=== PATIENT | female | born 1995 | race Caucasian/White ===

== ENCOUNTER 2016-11-23 09:19 | Emergency (ER) | payer MEDICAID, SELFPAY ==
[~2016-11-23 09:19] MED LIST: /ACETCOD2T PO; /ONDA4TA PO; ACET50TA PO; ANUS2.5C2 AD; DOCU10ELUD PO; IBUP80TA PO; MOM30SS PO; PRENTAB9 PO; VALT1TAB PO; [UNRECOGNIZED DRUG - OTHER] OR; azythromycin OR
[2016-11-23] MEDS ORDERED: PANTOPRAZOLE 40MG INJ (PROTONIX) (C9113) As Ordered ONE (10:07)
[2016-11-23] MEDS ORDERED: ONDANSETRON 4MG/2ML VIAL (J2405) As Ordered ONE (10:07)
[2016-11-23 10:19] LABS: BASO % 0.3 % (0.0-1.0); EOS # 0.1 K/mm3 (0.0-0.50); EOS % 0.6 % (0.0-3.0); LARGE UNSTAINED CELL # 0.4 K/mm3 (0.0-0.4); LARGE UNSTAINED CELL % 3.6 % (0.0-4.0); LYMPH # 1.2 K/mm3 (1.5-6.5); LYMPH % 10.5 % (24.0-44.0); MEAN CORPUSCULAR HEMOGLOBIN 29.7 pg (27.0-33.0); MEAN CORPUSCULAR HGB CONC 32.6 g/dl (32.0-36.5); MEAN CORPUSCULAR VOLUME 91.1 fl (80.0-96.0); MONO # 0.7 K/mm3 (0.0-0.8); MONO % 6.1 % (0.0-5.0); NEUTROPHILS % 78.8 % (36.0-66.0); PLATELET COUNT, AUTOMATED 203 k/mm3 (150-450); WHITE BLOOD COUNT 11.4 K/mm3 (4.0-10.0)
[2016-11-23 10:39] LABS: ANION GAP 9 MEQ/L (8-16); BLOOD UREA NITROGEN 5 MG/DL (7-18); CALCIUM LEVEL 8.7 MG/DL (8.5-10.1); CARBON DIOXIDE LEVEL 25 MEQ/L (21-32); CHLORIDE LEVEL 107 MEQ/L (98-107); GLOMERULAR FILTRATION RATE > 60.0 (>60); GLUCOSE, FASTING 83 MG/DL (70-105); POTASSIUM SERUM 3.7 MEQ/L (3.5-5.1); SODIUM LEVEL 141 MEQ/L (136-145)
--- NOTE | 2016-11-23 12:50 | EDDOCDS ---
Physician Documentation [facility] Name: lEsy Palacios Age: 20 yrs Sex: Female : 1995 Arrival Date: 11/23/2016 Time: 09:19 Bed I5 / M5 Private MD: NO PRIMARY PHYSICIAN, . Disposition: 11/23/16 12:39 Discharged to Home/Self Care. Impression: Conjunctivitis - Left, Nausea and vomiting, Diarrhea, unspecified. - Condition is Stable. - Discharge Instructions: Food Choices to Help Relieve Diarrhea, Adult, Conjunctivitis (Viral and Bacterial), Diarrhea. - Prescriptions for Erythromycin 5 mg/gram (0.5 %) Ophthalmic Ointment - apply 1 centimeter by OPHTHALMIC route 2-3 times daily for 7 days; 1 tube. - Work Release Form - 3 day, Medication Reconciliation, Local Pharmacy Hours form. - Follow up: Clifford Alejandre MD; When: As previously arranged; Reason: Recheck today's complaints, Continuance of care. Follow up: Emergency Department; When: As needed; Reason: Worsening of conditions. - Problem is new. - Symptoms have improved. Historical: - Allergies: no known allergies; - Home Meds: 1. none - PMHx: Herpes; IBS; ''Kidney cysts''; - PSHx: ectopic; - Social history: Smoking status: Patient/guardian denies using No barriers to communication noted, The patient speaks fluent Setswana. - Family history: Not pertinent. - : The pt / caregiver states he / she is not on anticoagulants. Home medication list is obtained from the patient. - Exposure Risk Screening:: None identified. 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 4 in. (162.56 cm) (R); 10:52 BP 96 / 54; Pulse 80; Pulse Ox 98% ; kr3 11:30 BP 109 / 70; Pulse 82; Resp 18; Temp 97.4; Pulse Ox 100% ; Pain 0/10; jam1 09:21 Body Mass Index 22.31 (58.97 kg, 162.56 cm) dd6 Visual Acuity: 09:34 Left Eye Visual acuity 20/40, ; Right Eye Visual acuity 20/30, ; Both Eyes Visual kcs acuity 20/40; Without Lenses; MDM: 09:41 Heart Tones ordered. dk1 09:41 Fluid Challenge ordered. dk1 09:45 UA Ordered. EDMS 09:45 Urine Culture Ordered. EDMS 10:05 IV Saline Lock ordered. dk1 10:05 NS 0.9% 2000 ml IV at bolus once ordered. dk1 10:05 pantoprazole 40 mg IV at bolus once ordered. dk1 10:05 Ondansetron 4 mg IVP once ordered. dk1 10:06 CBC with Diff Ordered. EDMS 10:06 BMP Ordered. EDMS 10:40 CBC with Diff Reviewed. dk1 11:23 [facility] Payment Agreement was scanned into [employer] and attached to record. 5 11:23 Financial registration complete. jp5 11:26 UA Reviewed. dk1 11:26 BMP Reviewed. dk1 Administered Medications: 10:13 Drug: pantoprazole 40 mg [pantoprazole 40 mg intravenous solution] Route: IV; Rate: jmk bolus; Site: left antecubital; 10:13 Drug: Ondansetron 4 mg Route: IVP; Site: left antecubital; k 11:43 Follow up: Response: Nausea is decreased k 10:14 Drug: NS 0.9% 2000 ml Route: IV; Rate: bolus; Site: left antecubital; k 10:52 Follow up: BP 96 / 54; Pulse 80 bpm; Pulse Ox 98% ; IV Intake: 1000ml kr3 11:46 Follow up: IV Status: Completed infusion; IV Intake: 1000ml kr3 Signatures: Dispatcher [employer] EDDarien HeathRN Hetal Villarreal RN Carey Hess RN RN kr3 Froy Moore PA-C PA-C dk1 George Rincon jp5 The chart was reviewed and I authenticate all verbal orders and agree with the evaluation and treatment provided.Attachments: 11:23 [facility] Payment Agreement jp5 MTDD
--- NOTE | 2016-11-23 12:50 | EDDOCDS ---
Nurse's Notes [facility] Name: Elsy Palacios Age: 20 yrs Sex: Female : 1995 Arrival Date: 11/23/2016 Time: 09:19 Bed I5 / M5 Private MD: NO PRIMARY PHYSICIAN, . Diagnosis: Conjunctivitis-Left;Nausea and vomiting;Diarrhea, unspecified Presentation: 11/23 09:22 Presenting complaint: Patient states: Pt presents with pain itching and drainage from dls left eye since last night pt also states has had vomiting and diarrhea all weekend. Mechanism of Injury: No Mechanism of Injury. The patient denies any loss of vision. Adult Sepsis Screening: The patient does not have new or worsening altered mentation. Patient's respiratory rate is less than 22. Systolic blood pressure is greater than 100. Patient has a qSOFA score of 0- Negative Sepsis Screen. Suicide/Homicide risk assessment- the patient denies having any suicidal and/or homicidal ideations and does not present with any other emotional, behavioral or mental health complaints. Status: Patient is not a service car operator or dependent. Transition of care: patient was not received from another setting of care. 09:22 Acuity: SOULEYMANE Level 4 dls 09:22 Method Of Arrival: Walkin/Carried/Asstd dls 09:26 Presenting complaint: Patient states: Pt is 21 weeks . dls Triage Assessment: 09:25 General: Appears in no apparent distress, slender, well developed, well nourished, well dls groomed, Behavior is cooperative. Pain: Pain currently is 1 out of 10 on a pain scale. HIV screening NA for this visit Offered previously. 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 none - PMHx: Herpes; IBS; ''Kidney cysts''; - PSHx: ectopic; - Social history: Smoking status: Patient/guardian denies using No barriers to communication noted, The patient speaks fluent Italian. - Family history: Not pertinent. - : The pt / caregiver states he / she is not on anticoagulants. Home medication list is obtained from the patient. - Exposure Risk Screening:: None identified. Screenin:55 Screening information is obtained from the patient. Primary language is Italian. Fall jam1 risk: No risks identified. Assistance ADL's: requires no assistance with activities of daily living. Abuse/DV Screen: The patient / caregiver reports he/she is: not in a situation that causes fear, pain or injury. Nutritional screening: No deficits noted. Exposure Risk Screening: None identified. Advance Directives: Currently, there is no health care proxy. There is no active DNR order. There is no living will. There is no Power of Byproducts Pump Operator. Advance directive information has not previously been placed in an [facility] medical record. Further advance directive information is declined. home support is adequate. Assessment: 09:52 General: Appears in no apparent distress, skin warm and dry color satisfactory, Moist jmk pink oral mucosa. slight pink coloration to left sclera with small amount of drainage. ANCELMO. without photosensitivity. Gravid uterus. otherwise abd soft and non distended with bowel sounds present x 4. Non tender with palpation. reports no vaginal bleeding, FHT 160 of good quality. clear liquids initiated.. EENT: Eyes Sclera/Cornea are reddened in outer aspect of conjuctiva of left eye and inner aspect of conjunctiva of left eye. 10:38 General: Appears reports nausea has decreased. Bolus infusing.. jmk 11:09 General: Appears states less nausea. without vomiting. is accommodating apple juice. jmk 2nd liter of fluids infusing. 11:38 Reassessment: reports 'still feeling pukey'. Given crackers. kr3 12:21 General: States burning sensation to throat since crackers, Intake changed to popsicle. jmk states feels better with ingestion of popsicle.. 12:48 Reassessment: Patient states feeling better. Pain: Denies pain. Neurological: No kr3 deficits noted. Respiratory: Respiratory effort is even, unlabored. GI: other tolerated apple juice, crackers and popsicle's with no recurrence of vomiting. Vital Signs: 09:21 BP 111 / 72; Pulse 104; Resp 18 S; Temp 98.6; Pulse Ox 100% on R/A; Weight 58.97 kg dd6 (R); Height 5 ft. 4 in. (162.56 cm) (R); 10:52 BP 96 / 54; Pulse 80; Pulse Ox 98% ; kr3 11:30 BP 109 / 70; Pulse 82; Resp 18; Temp 97.4; Pulse Ox 100% ; Pain 0/10; jam1 09:21 Body Mass Index 22.31 (58.97 kg, 162.56 cm) dd6 Vitals: 09:21 Log In Time: November 23, 2016 at 09:19. dd6 Visual Acuity: 09:34 Left Eye Visual acuity 20/40, ; Right Eye Visual acuity 20/30, ; Both Eyes Visual kcs acuity 20/40; Without Lenses; ED Course: 09:20 Patient visited by Ha Jiemnez PCA. dd6 09:20 NO PRIMARY PHYSICIAN, . is Private Physician. dd6 09:20 Patient moved to Waiting dd6 09:21 Patient moved to Pre RCE dd6 09:24 Triage Initiated dls 09:28 Patient moved to Triage 3 kcs 09:29 Patient moved to I10 / 23 kcs 09:35 Froy Moore PA-C is PHCP. dk1 09:35 Laura Monroe MD is Attending Physician. dk1 09:35 Patient visited by Froy Moore PA-C. dk1 09:40 Patient moved to I5 / M5 jmk 09:55 Pt greeted and oriented to ED. Patient advised of names of staff involved in care, jam1 location of call cummins, wait times and NPO status. Patient has correct armband on for positive identification. Bed in low position. Call light in reach. Side rails up X 1. Door closed. 09:57 Patient visited by Darien Trevino,BRENNAN. jmk 10:11 BMP Sent. kr3 10:11 CBC with Diff Sent. kr3 10:11 Inserted saline lock: 20 gauge in left antecubital area and blood collected. The kr3 patient tolerated the procedure well. 10:39 Patient visited by Darien Trevino,BRENNAN. jmk 10:46 Patient has correct armband on for positive identification. Bed in low position. Call jam1 light in reach. Side rails up X 1. Door closed. Warm blanket given. 10:52 The patient / caregiver is instructed regarding the plan of care and ED course. kr3 10:52 No procedures done that require assistance. kr3 11:23 [facility] Payment Agreement was scanned into [employer] and attached to record. jp5 11:38 Patient visited by Carey Venegas RN. kr3 12:23 Patient visited by Darien Trevino,BRENNAN. jmk 12:33 Patient visited by Mague Mcadams PCA. jam1 12:39 Clifford Alejandre MD is Referral Physician. dk1 12:48 Discontinued lock intact, bleeding controlled, pressure dressing applied, No kr3 redness/swelling at site. Administered Medications: 10:13 Drug: pantoprazole 40 mg [pantoprazole 40 mg intravenous solution] Route: IV; Rate: jmk bolus; Site: left antecubital; 10:13 Drug: Ondansetron 4 mg Route: IVP; Site: left antecubital; jmk 11:43 Follow up: Response: Nausea is decreased jmk 10:14 Drug: NS 0.9% 2000 ml Route: IV; Rate: bolus; Site: left antecubital; jmk 10:52 Follow up: BP 96 / 54; Pulse 80 bpm; Pulse Ox 98% ; IV Intake: 1000ml kr3 11:46 Follow up: IV Status: Completed infusion; IV Intake: 1000ml kr3 Intake: 10:52 IV: 1000.00ml; Total: 1000.00ml. kr3 11:46 IV: 1000.00ml; Total: 2000.00ml. kr3 Order Results: Lab Order: UA; SPEC'M 11/23/16 09:48 Test: APPEARANCE, URINE; Value: CLOUDY; Range: CLEAR; Abnormal: Above high normal; Status: F Test: COLOR, URINE; Value: YELLOW; Range: YELLOW; Status: F Test: PH,URINE; Value: 6.0; Range: 5.0-9.0; Units: UNITS; Status: F Test: SPECIFIC GRAVITY URINE AUTO; Value: 1.015; Range: 1.002-1.035; Status: F Test: PROTEIN, URINE AUTO; Value: 1+; Range: NEGATIVE; Abnormal: Above high normal; Units: mg/dL; Status: F Test: GLUCOSE, URINE (UA) AUTO; Value: NEGATIVE; Range: NEGATIVE; Units: mg/dL; Status: F Test: KETONE, URINE AUTO; Value: NEGATIVE; Range: NEGATIVE; Units: mg/dL; Status: F Test: UROBILINOGEN, URINE AUTO; Value: 0.2; Range: 0.0-2.0; Units: mg/dL; Status: F Test: BILIRUBIN, URINE AUTO; Value: NEGATIVE; Range: NEGATIVE; Status: F Test: NITRITE, URINE AUTO; Value: NEGATIVE; Range: NEGATIVE; Status: F Test: LEUKOCYTE ESTERASE, URINE AUTO; Value: 2+; Range: NEGATIVE; Abnormal: Above high normal; Status: F Test: BLOOD, URINE BLOOD; Value: NEGATIVE; Range: NEGATIVE; Status: F Test: WBC, URINE AUTO; Value: 14; Range: 0-3; Abnormal: Above high normal; Units: /HPF; Status: F Test: RBC, URINE AUTO; Value: 5; Range: 0-3; Abnormal: Above high normal; Units: /HPF; Status: F Test: BACTERIA, URINE AUTO; Value: 2+; Range: NEGATIVE; Abnormal: Above high normal; Status: F Test: SQUAMOUS EPITHELIAL CELL UR AU; Value: 7; Range: 0-6; Units: /HPF; Status: F Test: MUCUS, URINE; Value: LARGE; Range: NEGATIVE; Status: F Test: HYALINE CAST, URINE AUTO; Value: 0; Range: 0-1; Units: /LPF; Status: F Lab Order: CBC with Diff; SPEC'M 11/23/16 10:09 Test: WHITE BLOOD COUNT; Value: 11.4; Range: 4.0-10.0; Abnormal: Above high normal; Units: K/mm3; Status: F Test: RED BLOOD COUNT; Value: 4.20; Range: 4.00-5.40; Units: M/mm3; Status: F Test: HEMOGLOBIN; Value: 12.5; Range: 12.0-16.0; Units: g/dl; Status: F Test: HEMATOCRIT; Value: 38.3; Range: 36.0-47.0; Units: %; Status: F Test: MEAN CORPUSCULAR VOLUME; Value: 91.1; Range: 80.0-96.0; Units: fl; Status: F Test: MEAN CORPUSCULAR HEMOGLOBIN; Value: 29.7; Range: 27.0-33.0; Units: pg; Status: F Test: MEAN CORPUSCULAR HGB CONC; Value: 32.6; Range: 32.0-36.5; Units: g/dl; Status: F Test: RED CELL DISTRIBUTION WIDTH; Value: 13.0; Range: 11.5-14.5; Units: %; Status: F Test: PLATELET COUNT, AUTOMATED; Value: 203; Range: 150-450; Units: k/mm3; Status: F Test: NEUTROPHILS %; Value: 78.8; Range: 36.0-66.0; Abnormal: Above high normal; Units: %; Status: F Test: LYMPH %; Value: 10.5; Range: 24.0-44.0; Abnormal: Below low normal; Units: %; Status: F Test: MONO %; Value: 6.1; Range: 0.0-5.0; Abnormal: Above high normal; Units: %; Status: F Test: EOS %; Value: 0.6; Range: 0.0-3.0; Units: %; Status: F Test: BASO %; Value: 0.3; Range: 0.0-1.0; Units: %; Status: F Test: LARGE UNSTAINED CELL %; Value: 3.6; Range: 0.0-4.0; Units: %; Status: F Test: NEUTROPHILS #; Value: 9.0; Range: 1.8-7.7; Abnormal: Above high normal; Units: K/mm3; Status: F Test: LYMPH #; Value: 1.2; Range: 1.5-6.5; Abnormal: Below low normal; Units: K/mm3; Status: F Test: MONO #; Value: 0.7; Range: 0.0-0.8; Units: K/mm3; Status: F Test: EOS #; Value: 0.1; Range: 0.0-0.50; Units: K/mm3; Status: F Test: BASO #; Value: 0.0; Range: 0.0-0.2; Units: K/mm3; Status: F Test: LARGE UNSTAINED CELL #; Value: 0.4; Range: 0.0-0.4; Units: K/mm3; Status: F Lab Order: [facility]; SPEC'M 11/23/16 10:09 Test: GLUCOSE, FASTING; Value: 83; Range: 70-105; Units: MG/DL; Status: F Test: BLOOD UREA NITROGEN; Value: 5; Range: 7-18; Abnormal: Below low normal; Units: MG/DL; Status: F Test: CREATININE FOR GFR; Value: 0.50; Range: 0.55-1.02; Abnormal: Below low normal; Units: MG/DL; Status: F Test: GLOMERULAR FILTRATION RATE; Value: > 60.0; Range: >60; Status: F Test: SODIUM LEVEL; Value: 141; Range: 136-145; Units: MEQ/L; Status: F Test: POTASSIUM SERUM; Value: 3.7; Range: 3.5-5.1; Units: MEQ/L; Status: F Test: CHLORIDE LEVEL; Value: 107; Range: 98-107; Units: MEQ/L; Status: F Test: CARBON DIOXIDE LEVEL; Value: 25; Range: 21-32; Units: MEQ/L; Status: F Test: ANION GAP; Value: 9; Range: 8-16; Units: MEQ/L; Status: F Test: CALCIUM LEVEL; Value: 8.7; Range: 8.5-10.1; Units: MG/DL; Status: F Test Note: ; Units are mL/min/1.73 m2 Chronic Kidney Disease Staging per NKF: Stage I & II GFR >=60 Normal to Mildly Decreased Stage III GFR 30-59 Moderately Decreased Stage IV GFR 15-29 Severely Decreased Stage V GFR <15 Very Little GFR Left ESRD GFR <15 on DEFENSE ANALYST Outcome: 10:52 No special radiology studies were completed. kr3 12:39 Discharge ordered by Provider. dk1 12:48 Discharge Assessment: patient administered narcotics - no. The following High Risk kr3 Discharge criteria are identified: None. Discharged to home ambulatory. Condition: stable. Discharge instructions given to patient, Instructed on discharge instructions, follow up and referral plans. medication usage, Demonstrated understanding of instructions, medications, Pt was receptive of discharge instructions/ teaching. Prescriptions given X 1, Work note provided to patient. 12:48 Property sent home with patient. kr3 12:49 Patient left the ED. kr3 Signatures: Kasie Mcneal RN Darien LealRN Hetal Villarreal RN RN dls Murphy, Jane, EPIC TRAINER EPIC TRAINER jam1 Carey Venegas RN RN kr3 Froy Moore, PA-C PA-C dk1 Ha Jimenez, EPIC TRAINER EPIC TRAINER dd6 George Rincon jp5 MTDD
--- NOTE | 2016-11-25 13:50 | EDDOCDS ---
Nurse's Notes [facility] Name: Elsy Palacios Age: 20 yrs Sex: Female : 1995 Arrival Date: 11/23/2016 Time: 09:19 Bed I5 / M5 Private MD: NO PRIMARY PHYSICIAN, . Diagnosis: Conjunctivitis-Left;Nausea and vomiting;Diarrhea, unspecified Presentation: 11/23 09:22 Presenting complaint: Patient states: Pt presents with pain itching and drainage from dls left eye since last night pt also states has had vomiting and diarrhea all weekend. Mechanism of Injury: No Mechanism of Injury. The patient denies any loss of vision. Adult Sepsis Screening: The patient does not have new or worsening altered mentation. Patient's respiratory rate is less than 22. Systolic blood pressure is greater than 100. Patient has a qSOFA score of 0- Negative Sepsis Screen. Suicide/Homicide risk assessment- the patient denies having any suicidal and/or homicidal ideations and does not present with any other emotional, behavioral or mental health complaints. Status: Patient is not a patient services assistant or dependent. Transition of care: patient was not received from another setting of care. 09:22 Acuity: SOULEYMANE Level 4 dls 09:22 Method Of Arrival: Walkin/Carried/Asstd dls 09:26 Presenting complaint: Patient states: Pt is 21 weeks . dls Triage Assessment: 09:25 General: Appears in no apparent distress, slender, well developed, well nourished, well dls groomed, Behavior is cooperative. Pain: Pain currently is 1 out of 10 on a pain scale. HIV screening NA for this visit Offered previously. 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 none - PMHx: Herpes; IBS; ''Kidney cysts''; - PSHx: ectopic; - Social history: Smoking status: Patient/guardian denies using No barriers to communication noted, The patient speaks fluent [place]. - Family history: Not pertinent. - : The pt / caregiver states he / she is not on anticoagulants. Home medication list is obtained from the patient. - Exposure Risk Screening:: None identified. Screenin:55 Screening information is obtained from the patient. Primary language is [place]. Fall jam1 risk: No risks identified. Assistance ADL's: requires no assistance with activities of daily living. Abuse/DV Screen: The patient / caregiver reports he/she is: not in a situation that causes fear, pain or injury. Nutritional screening: No deficits noted. Exposure Risk Screening: None identified. Advance Directives: Currently, there is no health care proxy. There is no active DNR order. There is no living will. There is no Power of Brine Plant Operator. Advance directive information has not previously been placed in an [facility] medical record. Further advance directive information is declined. home support is adequate. Assessment: 09:52 General: Appears in no apparent distress, skin warm and dry color satisfactory, Moist jmk pink oral mucosa. slight pink coloration to left sclera with small amount of drainage. ANCELMO. without photosensitivity. Gravid uterus. otherwise abd soft and non distended with bowel sounds present x 4. Non tender with palpation. reports no vaginal bleeding, FHT 160 of good quality. clear liquids initiated.. EENT: Eyes Sclera/Cornea are reddened in outer aspect of conjuctiva of left eye and inner aspect of conjunctiva of left eye. 10:38 General: Appears reports nausea has decreased. Bolus infusing.. jmk 11:09 General: Appears states less nausea. without vomiting. is accommodating apple juice. jmk 2nd liter of fluids infusing. 11:38 Reassessment: reports 'still feeling pukey'. Given crackers. kr3 12:21 General: States burning sensation to throat since crackers, Intake changed to popsicle. jmk states feels better with ingestion of popsicle.. 12:48 Reassessment: Patient states feeling better. Pain: Denies pain. Neurological: No kr3 deficits noted. Respiratory: Respiratory effort is even, unlabored. GI: other tolerated apple juice, crackers and popsicle's with no recurrence of vomiting. Vital Signs: 09:21 BP 111 / 72; Pulse 104; Resp 18 S; Temp 98.6; Pulse Ox 100% on R/A; Weight 58.97 kg dd6 (R); Height 5 ft. 4 in. (162.56 cm) (R); 10:52 BP 96 / 54; Pulse 80; Pulse Ox 98% ; kr3 11:30 BP 109 / 70; Pulse 82; Resp 18; Temp 97.4; Pulse Ox 100% ; Pain 0/10; jam1 09:21 Body Mass Index 22.31 (58.97 kg, 162.56 cm) dd6 Vitals: 09:21 Log In Time: November 23, 2016 at 09:19. dd6 Visual Acuity: 09:34 Left Eye Visual acuity 20/40, ; Right Eye Visual acuity 20/30, ; Both Eyes Visual kcs acuity 20/40; Without Lenses; ED Course: 09:20 Patient visited by Ha Jimenez PCA. dd6 09:20 NO PRIMARY PHYSICIAN, . is Private Physician. dd6 09:20 Patient moved to Waiting dd6 09:21 Patient moved to Pre RCE dd6 09:24 Triage Initiated dls 09:28 Patient moved to Triage 3 kcs 09:29 Patient moved to I10 / 23 kcs 09:35 Froy Moore PA-C is PHCP. dk1 09:35 Laura Monroe MD is Attending Physician. dk1 09:35 Patient visited by Froy Moore PA-C. dk1 09:40 Patient moved to I5 / M5 jmk 09:55 Pt greeted and oriented to ED. Patient advised of names of staff involved in care, jam1 location of call cummins, wait times and NPO status. Patient has correct armband on for positive identification. Bed in low position. Call light in reach. Side rails up X 1. Door closed. 09:57 Patient visited by Darien Trevino,BRENNAN. jmk 10:11 BMP Sent. kr3 10:11 CBC with Diff Sent. kr3 10:11 Inserted saline lock: 20 gauge in left antecubital area and blood collected. The kr3 patient tolerated the procedure well. 10:39 Patient visited by Darien Trevino,BRENNAN. jmk 10:46 Patient has correct armband on for positive identification. Bed in low position. Call jam1 light in reach. Side rails up X 1. Door closed. Warm blanket given. 10:52 The patient / caregiver is instructed regarding the plan of care and ED course. kr3 10:52 No procedures done that require assistance. kr3 11:23 [facility] [place] Agreement was scanned into [employer] and attached to record. jp5 11:38 Patient visited by Carey Venegas RN. kr3 12:23 Patient visited by Darien Trevino,BRENNAN. jmk 12:33 Patient visited by Mague Mcadams PCA. jam1 12:39 Clifford Alejandre MD is Referral Physician. dk1 12:48 Discontinued lock intact, bleeding controlled, pressure dressing applied, No kr3 redness/swelling at site. 14:29 T-Sheet-- Draft Copy was scanned into [employer] and attached to record. gb Administered Medications: 10:13 Drug: pantoprazole 40 mg [pantoprazole 40 mg intravenous solution] Route: IV; Rate: jmk bolus; Site: left antecubital; 10:13 Drug: Ondansetron 4 mg Route: IVP; Site: left antecubital; jmk 11:43 Follow up: Response: Nausea is decreased jmk 10:14 Drug: NS 0.9% 2000 ml Route: IV; Rate: bolus; Site: left antecubital; jmk 10:52 Follow up: BP 96 / 54; Pulse 80 bpm; Pulse Ox 98% ; IV Intake: 1000ml kr3 11:46 Follow up: IV Status: Completed infusion; IV Intake: 1000ml kr3 Intake: 10:52 IV: 1000.00ml; Total: 1000.00ml. kr3 11:46 IV: 1000.00ml; Total: 2000.00ml. kr3 Order Results: Lab Order: UA; SPEC'M 11/23/16 09:48 Test: APPEARANCE, URINE; Value: CLOUDY; Range: CLEAR; Abnormal: Above high normal; Status: F Test: COLOR, URINE; Value: YELLOW; Range: YELLOW; Status: F Test: PH,URINE; Value: 6.0; Range: 5.0-9.0; Units: UNITS; Status: F Test: SPECIFIC GRAVITY URINE AUTO; Value: 1.015; Range: 1.002-1.035; Status: F Test: PROTEIN, URINE AUTO; Value: 1+; Range: NEGATIVE; Abnormal: Above high normal; Units: mg/dL; Status: F Test: GLUCOSE, URINE (UA) AUTO; Value: NEGATIVE; Range: NEGATIVE; Units: mg/dL; Status: F Test: KETONE, URINE AUTO; Value: NEGATIVE; Range: NEGATIVE; Units: mg/dL; Status: F Test: UROBILINOGEN, URINE AUTO; Value: 0.2; Range: 0.0-2.0; Units: mg/dL; Status: F Test: BILIRUBIN, URINE AUTO; Value: NEGATIVE; Range: NEGATIVE; Status: F Test: NITRITE, URINE AUTO; Value: NEGATIVE; Range: NEGATIVE; Status: F Test: LEUKOCYTE ESTERASE, URINE AUTO; Value: 2+; Range: NEGATIVE; Abnormal: Above high normal; Status: F Test: BLOOD, URINE BLOOD; Value: NEGATIVE; Range: NEGATIVE; Status: F Test: WBC, URINE AUTO; Value: 14; Range: 0-3; Abnormal: Above high normal; Units: /HPF; Status: F Test: RBC, URINE AUTO; Value: 5; Range: 0-3; Abnormal: Above high normal; Units: /HPF; Status: F Test: BACTERIA, URINE AUTO; Value: 2+; Range: NEGATIVE; Abnormal: Above high normal; Status: F Test: SQUAMOUS EPITHELIAL CELL UR AU; Value: 7; Range: 0-6; Units: /HPF; Status: F Test: MUCUS, URINE; Value: LARGE; Range: NEGATIVE; Status: F Test: HYALINE CAST, URINE AUTO; Value: 0; Range: 0-1; Units: /LPF; Status: F Lab Order: Urine Culture; SPEC'M 11/23/16 09:48 Test: URINE CULTURE; Value: URINE CULTURE RESULT NO GROWTH CLINICAL SIGNIFICANCE 1 ORGANISM; Status: F Lab Order: CBC with Diff; SPEC'M 11/23/16 10:09 Test: WHITE BLOOD COUNT; Value: 11.4; Range: 4.0-10.0; Abnormal: Above high normal; Units: K/mm3; Status: F Test: RED BLOOD COUNT; Value: 4.20; Range: 4.00-5.40; Units: M/mm3; Status: F Test: HEMOGLOBIN; Value: 12.5; Range: 12.0-16.0; Units: g/dl; Status: F Test: HEMATOCRIT; Value: 38.3; Range: 36.0-47.0; Units: %; Status: F Test: MEAN CORPUSCULAR VOLUME; Value: 91.1; Range: 80.0-96.0; Units: fl; Status: F Test: MEAN CORPUSCULAR HEMOGLOBIN; Value: 29.7; Range: 27.0-33.0; Units: pg; Status: F Test: MEAN CORPUSCULAR HGB CONC; Value: 32.6; Range: 32.0-36.5; Units: g/dl; Status: F Test: RED CELL DISTRIBUTION WIDTH; Value: 13.0; Range: 11.5-14.5; Units: %; Status: F Test: PLATELET COUNT, AUTOMATED; Value: 203; Range: 150-450; Units: k/mm3; Status: F Test: NEUTROPHILS %; Value: 78.8; Range: 36.0-66.0; Abnormal: Above high normal; Units: %; Status: F Test: LYMPH %; Value: 10.5; Range: 24.0-44.0; Abnormal: Below low normal; Units: %; Status: F Test: MONO %; Value: 6.1; Range: 0.0-5.0; Abnormal: Above high normal; Units: %; Status: F Test: EOS %; Value: 0.6; Range: 0.0-3.0; Units: %; Status: F Test: BASO %; Value: 0.3; Range: 0.0-1.0; Units: %; Status: F Test: LARGE UNSTAINED CELL %; Value: 3.6; Range: 0.0-4.0; Units: %; Status: F Test: NEUTROPHILS #; Value: 9.0; Range: 1.8-7.7; Abnormal: Above high normal; Units: K/mm3; Status: F Test: LYMPH #; Value: 1.2; Range: 1.5-6.5; Abnormal: Below low normal; Units: K/mm3; Status: F Test: MONO #; Value: 0.7; Range: 0.0-0.8; Units: K/mm3; Status: F Test: EOS #; Value: 0.1; Range: 0.0-0.50; Units: K/mm3; Status: F Test: BASO #; Value: 0.0; Range: 0.0-0.2; Units: K/mm3; Status: F Test: LARGE UNSTAINED CELL #; Value: 0.4; Range: 0.0-0.4; Units: K/mm3; Status: F Lab Order: [facility]; SPEC'M 11/23/16 10:09 Test: GLUCOSE, FASTING; Value: 83; Range: 70-105; Units: MG/DL; Status: F Test: BLOOD UREA NITROGEN; Value: 5; Range: 7-18; Abnormal: Below low normal; Units: MG/DL; Status: F Test: CREATININE FOR GFR; Value: 0.50; Range: 0.55-1.02; Abnormal: Below low normal; Units: MG/DL; Status: F Test: GLOMERULAR FILTRATION RATE; Value: > 60.0; Range: >60; Status: F Test: SODIUM LEVEL; Value: 141; Range: 136-145; Units: MEQ/L; Status: F Test: POTASSIUM SERUM; Value: 3.7; Range: 3.5-5.1; Units: MEQ/L; Status: F Test: CHLORIDE LEVEL; Value: 107; Range: 98-107; Units: MEQ/L; Status: F Test: CARBON DIOXIDE LEVEL; Value: 25; Range: 21-32; Units: MEQ/L; Status: F Test: ANION GAP; Value: 9; Range: 8-16; Units: MEQ/L; Status: F Test: CALCIUM LEVEL; Value: 8.7; Range: 8.5-10.1; Units: MG/DL; Status: F Test Note: ; Units are mL/min/1.73 m2 Chronic Kidney Disease Staging per NKF: Stage I & II GFR >=60 Normal to Mildly Decreased Stage III GFR 30-59 Moderately Decreased Stage IV GFR 15-29 Severely Decreased Stage V GFR <15 Very Little GFR Left ESRD GFR <15 on ASSOCIATE ENTERTAINMENT EDITOR Outcome: 10:52 No special radiology studies were completed. kr3 12:39 Discharge ordered by Provider. dk1 12:48 Discharge Assessment: patient administered narcotics - no. The following High Risk kr3 Discharge criteria are identified: None. Discharged to home ambulatory. Condition: stable. Discharge instructions given to patient, Instructed on discharge instructions, follow up and referral plans. medication usage, Demonstrated understanding of instructions, medications, Pt was receptive of discharge instructions/ teaching. Prescriptions given X 1, Work note provided to patient. 12:48 Property sent home with patient. kr3 12:49 Patient left the ED. kr3 Signatures: Kasie Mcneal RN Darien LealRN Hetal Villarreal RN RN dls Murphy, Jane, PCA MARKETING ANALYTICS SPECIALIST Leigh Riveraria, Reg Reg gb Carey Venegas,RN RN kr3 Froy Moore, NAZ PA-C dk1 Ha Jimenez, MARKETING ANALYTICS SPECIALIST MARKETING ANALYTICS SPECIALIST dd6 George Rincon jp5 Chart Complete MTDD
--- NOTE | 2016-11-25 13:50 | EDDOCDS ---
Physician Documentation [facility] Name: Elsy Palacios Age: 20 yrs Sex: Female : 1995 Arrival Date: 11/23/2016 Time: 09:19 Bed I5 / M5 Private MD: NO PRIMARY PHYSICIAN, . Disposition: 11/23/16 12:39 Discharged to Home/Self Care. Impression: Conjunctivitis - Left, Nausea and vomiting, Diarrhea, unspecified. - Condition is Stable. - Discharge Instructions: Food Choices to Help Relieve Diarrhea, Adult, Conjunctivitis (Viral and Bacterial), Diarrhea. - Prescriptions for Erythromycin 5 mg/gram (0.5 %) Ophthalmic Ointment - apply 1 centimeter by OPHTHALMIC route 2-3 times daily for 7 days; 1 tube. - Work Release Form - 3 day, Medication Reconciliation, Local Pharmacy Hours form. - Follow up: Clifford Alejandre MD; When: As previously arranged; Reason: Recheck today's complaints, Continuance of care. Follow up: Emergency Department; When: As needed; Reason: Worsening of conditions. - Problem is new. - Symptoms have improved. Historical: - Allergies: no known allergies; - Home Meds: 1. none - PMHx: Herpes; IBS; ''Kidney cysts''; - PSHx: ectopic; - Social history: Smoking status: Patient/guardian denies using No barriers to communication noted, The patient speaks fluent [place]guill[place]. - Family history: Not pertinent. - : The pt / caregiver states he / she is not on anticoagulants. Home medication list is obtained from the patient. - Exposure Risk Screening:: None identified. 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 4 in. (162.56 cm) (R); 10:52 BP 96 / 54; Pulse 80; Pulse Ox 98% ; kr3 11:30 BP 109 / 70; Pulse 82; Resp 18; Temp 97.4; Pulse Ox 100% ; Pain 0/10; jam1 09:21 Body Mass Index 22.31 (58.97 kg, 162.56 cm) dd6 Visual Acuity: 09:34 Left Eye Visual acuity 20/40, ; Right Eye Visual acuity 20/30, ; Both Eyes Visual kcs acuity 20/40; Without Lenses; MDM: 09:41 Heart Tones ordered. dk1 09:41 Fluid Challenge ordered. dk1 09:45 UA Ordered. EDMS 09:45 Urine Culture Ordered. EDMS 10:05 IV Saline Lock ordered. dk1 10:05 NS 0.9% 2000 ml IV at bolus once ordered. dk1 10:05 pantoprazole 40 mg IV at bolus once ordered. dk1 10:05 Ondansetron 4 mg IVP once ordered. dk1 10:06 CBC with Diff Ordered. EDMS 10:06 BMP Ordered. EDMS 10:40 CBC with Diff Reviewed. dk1 11:23 [facility] Payment Agreement was scanned into [employer] and attached to record. 5 11:23 Financial registration complete. jp5 11:26 UA Reviewed. dk1 11:26 BMP Reviewed. dk1 14:29 T-Sheet-- Draft Copy was scanned into [employer] and attached to record. gb Administered Medications: 10:13 Drug: pantoprazole 40 mg [pantoprazole 40 mg intravenous solution] Route: IV; Rate: jmk bolus; Site: left antecubital; 10:13 Drug: Ondansetron 4 mg Route: IVP; Site: left antecubital; [facility] 11:43 Follow up: Response: Nausea is decreased [facility] 10:14 Drug: NS 0.9% 2000 ml Route: IV; Rate: bolus; Site: left antecubital; k 10:52 Follow up: BP 96 / 54; Pulse 80 bpm; Pulse Ox 98% ; IV Intake: 1000ml kr3 11:46 Follow up: IV Status: Completed infusion; IV Intake: 1000ml kr3 Signatures: Dispatcher [employer] EDDarien Heaht RN RN jmk Scott, Debra, RN RN dls Barnhardt, Gloria, Carey Stoll RN RN kr3 Froy Moore, PATara PAElbaC George Bazan 5 The chart was reviewed and I authenticate all verbal orders and agree with the evaluation and treatment provided.Attachments: 11:23 [facility] Payment Agreement jp5 14:29 T-Sheet-- Draft Copy gb Chart Complete MTDD
--- NOTE | 2016-11-25 13:50 | EDDOCDS ---
Physician Documentation [facility] Name: Elsy Palacios Age: 20 yrs Sex: Female : 1995 Arrival Date: 11/23/2016 Time: 09:19 Bed I5 / M5 Private MD: NO PRIMARY PHYSICIAN, . Disposition: 11/23/16 12:39 Discharged to Home/Self Care. Impression: Conjunctivitis - Left, Nausea and vomiting, Diarrhea, unspecified. - Condition is Stable. - Discharge Instructions: Food Choices to Help Relieve Diarrhea, Adult, Conjunctivitis (Viral and Bacterial), Diarrhea. - Prescriptions for Erythromycin 5 mg/gram (0.5 %) Ophthalmic Ointment - apply 1 centimeter by OPHTHALMIC route 2-3 times daily for 7 days; 1 tube. - Work Release Form - 3 day, Medication Reconciliation, Local Pharmacy Hours form. - Follow up: Clifford Alejandre MD; When: As previously arranged; Reason: Recheck today's complaints, Continuance of care. Follow up: Emergency Department; When: As needed; Reason: Worsening of conditions. - Problem is new. - Symptoms have improved. Historical: - Allergies: no known allergies; - Home Meds: 1. none - PMHx: Herpes; IBS; ''Kidney cysts''; - PSHx: ectopic; - Social history: Smoking status: Patient/guardian denies using No barriers to communication noted, The patient speaks fluent German. - Family history: Not pertinent. - : The pt / caregiver states he / she is not on anticoagulants. Home medication list is obtained from the patient. - Exposure Risk Screening:: None identified. 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 4 in. (162.56 cm) (R); 10:52 BP 96 / 54; Pulse 80; Pulse Ox 98% ; kr3 11:30 BP 109 / 70; Pulse 82; Resp 18; Temp 97.4; Pulse Ox 100% ; Pain 0/10; jam1 09:21 Body Mass Index 22.31 (58.97 kg, 162.56 cm) dd6 Visual Acuity: 09:34 Left Eye Visual acuity 20/40, ; Right Eye Visual acuity 20/30, ; Both Eyes Visual kcs acuity 20/40; Without Lenses; MDM: 09:41 Heart Tones ordered. dk1 09:41 Fluid Challenge ordered. dk1 09:45 UA Ordered. EDMS 09:45 Urine Culture Ordered. EDMS 10:05 IV Saline Lock ordered. dk1 10:05 NS 0.9% 2000 ml IV at bolus once ordered. dk1 10:05 pantoprazole 40 mg IV at bolus once ordered. dk1 10:05 Ondansetron 4 mg IVP once ordered. dk1 10:06 CBC with Diff Ordered. EDMS 10:06 BMP Ordered. EDMS 10:40 CBC with Diff Reviewed. dk1 11:23 [facility] Payment Agreement was scanned into [employer] and attached to record. 5 11:23 Financial registration complete. jp5 11:26 UA Reviewed. dk1 11:26 BMP Reviewed. dk1 14:29 T-Sheet-- Draft Copy was scanned into [employer] and attached to record. gb Administered Medications: 10:13 Drug: pantoprazole 40 mg [pantoprazole 40 mg intravenous solution] Route: IV; Rate: jmk bolus; Site: left antecubital; 10:13 Drug: Ondansetron 4 mg Route: IVP; Site: left antecubital; [facility] 11:43 Follow up: Response: Nausea is decreased [facility] 10:14 Drug: NS 0.9% 2000 ml Route: IV; Rate: bolus; Site: left antecubital; k 10:52 Follow up: BP 96 / 54; Pulse 80 bpm; Pulse Ox 98% ; IV Intake: 1000ml kr3 11:46 Follow up: IV Status: Completed infusion; IV Intake: 1000ml kr3 Signatures: Dispatcher [employer] EDDarien Heath RN RN jmk Scott, Debra, RN RN dls Barnhardt, Gloria, Carey Stoll RN RN kr3 Froy Moore, PATara PAElbaC George Bazan 5 The chart was reviewed and I authenticate all verbal orders and agree with the evaluation and treatment provided.Attachments: 11:23 [facility] Payment Agreement jp5 14:29 T-Sheet-- Draft Copy gb Chart Complete MTDD
== END 2016-11-23 12:49 | disposition home or self-care (01) ==
LOC: M ED 09:19
DX: R11.10 Vomiting, unspecified (principal); R19.7 Diarrhea, unspecified; H10.32 Unspecified acute conjunctivitis, left eye; B00.9 Herpesviral infection, unspecified; K58.9 Irritable bowel syndrome, unspecified; N28.1 Cyst of kidney, acquired
CPT/HCPCS: 36415; 80048; 81001; 85025; 87086; 96361; 96374; 96375; 99284; C9113; J2405

== ENCOUNTER → 2016-11-24 | Outpatient (CLI) | payer OTHER | LOC: M LAB 13:49 | PROVIDERS: ATTEND Advanced Practice Midwife | DX: O28.5 Abnormal chromosomal and genetic finding on antenatal screening of mother (principal) ==

== ENCOUNTER 2016-12-30 22:21 | Emergency (ER) | payer MEDICAID, OTHER | END 2016-12-30 22:55 | disposition left against medical advice (07) | LOC: M ED 22:21 | DX: R11.2 Nausea with vomiting, unspecified (principal); Z53.20 Procedure and treatment not carried out because of patient's decision for unspecified reasons ==

== ENCOUNTER 2016-12-30 22:52 | Outpatient (CLI) | payer OTHER ==
[~2016-12-30] VITALS: Ht 157.5 cm; Wt 62.0 kg
[2016-12-30 23:02] VITALS: BP 121/72
[2016-12-30] MEDS ORDERED: LACTATED RINGER'S 1000 ML IV STA (23:11)
[2016-12-30] MEDS: ONDANSETRON 4MG/2ML VIAL (J2405) IV PRN (23:43)
[2016-12-31 00:25] LABS: BASO % 0.3 % (0.0-1.0); EOS # 0.1 K/mm3 (0.0-0.50); EOS % 0.9 % (0.0-3.0); LARGE UNSTAINED CELL # 0.2 K/mm3 (0.0-0.4); LARGE UNSTAINED CELL % 1.3 % (0.0-4.0); LYMPH % 6.4 % (24.0-44.0); MEAN CORPUSCULAR HEMOGLOBIN 29.6 pg (27.0-33.0); MEAN CORPUSCULAR HGB CONC 32.4 g/dl (32.0-36.5); MEAN CORPUSCULAR VOLUME 91.4 fl (80.0-96.0); MONO # 0.9 K/mm3 (0.0-0.8); MONO % 6.6 % (0.0-5.0); NEUTROPHILS # 11.4 K/mm3 (1.8-7.7); NEUTROPHILS % 84.4 % (36.0-66.0); PLATELET COUNT, AUTOMATED 205 k/mm3 (150-450); RED CELL DISTRIBUTION WIDTH 13.2 % (11.5-14.5); WHITE BLOOD COUNT 13.5 K/mm3 (4.0-10.0)
[2016-12-31 01:45] LABS: ALBUMIN 2.9 GM/DL (3.2-5.2); ALBUMIN/GLOBULIN RATIO 0.78 (1.00-1.93); ALKALINE PHOSPHATASE 90 U/L (45-117); ALT/SGPT 15 U/L (12-78); ANION GAP 11 MEQ/L (8-16); AST/SGOT 17 U/L (15-37); BILIRUBIN,TOTAL 0.2 MG/DL (0.2-1.0); BLOOD UREA NITROGEN 8 MG/DL (7-18); CALCIUM LEVEL 7.9 MG/DL (8.5-10.1); CARBON DIOXIDE LEVEL 23 MEQ/L (21-32); CHLORIDE LEVEL 107 MEQ/L (98-107); CREATININE FOR GFR 0.45 MG/DL (0.55-1.02); GLOMERULAR FILTRATION RATE > 60.0 (>60); GLUCOSE, FASTING 82 MG/DL (70-105); POTASSIUM SERUM 3.7 MEQ/L (3.5-5.1); SODIUM LEVEL 141 MEQ/L (136-145); TOTAL PROTEIN 6.6 GM/DL (6.4-8.2)
[2016-12-31] MEDS: ONDANSETRON 4MG/2ML VIAL (J2405) IV PRN (03:29)
== END 2016-12-31 05:00 | disposition home or self-care (01) ==
LOC: M LDO 22:52
PROVIDERS: ATTEND Specialist
DX: O99.89 Other specified diseases and conditions complicating pregnancy, childbirth and the puerperium (principal); B34.9 Viral infection, unspecified; Z3A.26 26 weeks gestation of pregnancy
CPT/HCPCS: 36415; 59025; 80053; 85025; 96374; J2405

== ENCOUNTER → 2017-01-27 | Outpatient (CLI) | payer OTHER ==
[2017-01-27 18:37] LABS: BASO % 0.4 % (0.0-1.0); EOS # 0.1 K/mm3 (0.0-0.50); EOS % 0.6 % (0.0-3.0); LARGE UNSTAINED CELL # 0.2 K/mm3 (0.0-0.4); LARGE UNSTAINED CELL % 1.8 % (0.0-4.0); LYMPH # 1.9 K/mm3 (1.5-6.5); LYMPH % 15.5 % (24.0-44.0); MEAN CORPUSCULAR HEMOGLOBIN 29.4 pg (27.0-33.0); MEAN CORPUSCULAR HGB CONC 31.8 g/dl (32.0-36.5); MEAN CORPUSCULAR VOLUME 92.3 fl (80.0-96.0); MONO # 0.8 K/mm3 (0.0-0.8); MONO % 6.8 % (0.0-5.0); NEUTROPHILS # 8.2 K/mm3 (1.8-7.7); PLATELET COUNT, AUTOMATED 239 k/mm3 (150-450); RED CELL DISTRIBUTION WIDTH 12.9 % (11.5-14.5); WHITE BLOOD COUNT 10.9 K/mm3 (4.0-10.0)
== END ==
LOC: M SMT 14:24
PROVIDERS: ATTEND Advanced Practice Midwife
DX: Z34.83 Encounter for supervision of other normal pregnancy, third trimester (principal)

== ENCOUNTER → 2017-03-03 | Outpatient (REF) | payer OTHER | LOC: M LAB REF 17:05 | PROVIDERS: ATTEND Obstetrics & Gynecology | DX: Z36 Encounter for antenatal screening of mother (principal) ==

== ENCOUNTER → 2017-03-21 | Outpatient (CLI) | payer OTHER ==
[~2017-03-21] VITALS: Ht 162.6 cm; Wt 66.0 kg
[~2017-03-21] MED LIST changes: +ZOLO50TA PO
[2017-03-21 02:20] VITALS: BP 120/78
[2017-03-21 03:44] VITALS: BP 123/73
[2017-03-21 04:26] VITALS: BP 109/55
== END ==
LOC: M LDO 02:03
PROVIDERS: ATTEND Advanced Practice Midwife
DX: O47.1 False labor at or after 37 completed weeks of gestation (principal); Z3A.38 38 weeks gestation of pregnancy; Z88.0 Allergy status to penicillin

== ENCOUNTER 2017-03-23 02:40 | Outpatient (CLI) | payer OTHER ==
[~2017-03-23] VITALS: Ht 162.6 cm; Wt 68.0 kg
[2017-03-23] MEDS ORDERED: LACTATED RINGER'S 1000 ML IV STA (05:56)
[2017-03-23] MEDS ORDERED: LR 1,000 ML IV SCH (05:56)
[2017-03-23] MEDS ORDERED: BUTORPHANOL 2 MG/ML INJ (J0595) IV ONE (06:00)
[2017-03-23] MEDS ORDERED: PROMETHAZINE INJ 25 MG/ML VIAL (J2550) IV ONE (06:00)
[2017-03-23 09:30] VITALS: BP 107/59
[2017-03-23 11:25] VITALS: BP 110/70
== END 2017-03-23 11:58 | disposition home or self-care (01) ==
LOC: M LDO 02:40
PROVIDERS: ATTEND Advanced Practice Midwife
DX: O47.1 False labor at or after 37 completed weeks of gestation (principal); Z3A.38 38 weeks gestation of pregnancy; Z88.0 Allergy status to penicillin
CPT/HCPCS: 59025; J0595

== ENCOUNTER 2017-03-26 03:29 | Inpatient (IN) | payer OTHER ==
[~2017-03-26] VITALS: Ht 162.6 cm; Wt 61.0 kg
[2017-03-26] VITALS (25 sets, daily range): BP systolic 106–165; BP diastolic 58–91
[2017-03-26] MEDS ORDERED: LACTATED RINGER'S 1000 ML IV STA (04:08)
[2017-03-26] MEDS ORDERED: BUTORPHANOL 2 MG/ML INJ (J0595) IV ONE (04:30)
[2017-03-26] MEDS ORDERED: VANCOMYCIN HCL 1,000 MG, VIAL MATE ADAPTER 1 EACH in D5W 250 ML IV SCH (04:30)
[2017-03-26] MEDS ORDERED: PROMETHAZINE INJ 25 MG/ML VIAL (J2550) IV ONE (04:30)
[2017-03-26 04:35] LABS: MEAN CORPUSCULAR HEMOGLOBIN 26.9 pg (27.0-33.0); MEAN CORPUSCULAR HGB CONC 31.2 g/dl (32.0-36.5); MEAN CORPUSCULAR VOLUME 86.1 fl (80.0-96.0); RED CELL DISTRIBUTION WIDTH 13.3 % (11.5-14.5); WHITE BLOOD COUNT 14.7 K/mm3 (4.0-10.0)
--- NOTE | 2017-03-26 05:19 | HPE ---
DATE OF ADMISSION: 03/26/2017 HISTORY OF PRESENT ILLNESS: Elsy is a 21-year-old 4, para 2-0-1-2 at 39-3/7 weeks gestation with an estimated date of confinement (EDC) of 04/02/2017, based on last normal period and confirmed by first trimester ultrasound. She presents to labor and delivery today with report of uncomfortable contractions that are approximately every four minutes. She does report some positive bloody show. Denies leakage of fluid, and the fetus has been active. care was initiated at [facility] in the first trimester. course complicated by a history of herpes simplex virus (HSV). She has been on prophylactic treatment since 34 weeks gestation. She is a history of depression and anxiety and she resumed Zoloft in her second trimester. OBSTETRICAL HISTORY: 1. July 2012, at 10 weeks gestation she had an ectopic . 2. June 2013, at 37 weeks gestation she had a spontaneous vaginal delivery for a live female weighing 5 pounds 14 ounces. 3. April 2015, at 39-5/7 weeks gestation she had a spontaneous vaginal delivery for 7 pounds 4 ounce male. OBSTETRIC LABORATORIES: Blood type is O positive, antibody screen negative, rubella immune, VDRL nonreactive. Early urine culture positive for E. Coli. She was treated and repeat test to cure was negative. Gonorrhea and chlamydia negative. Hepatitis B surface antigen negative, HIV negative. Hepatitis C antibody negative. She did have a noninvasive testing for aneuploidy screening done and it demonstrated low probability for aneuploidy with a male fetus. Gestational diabetic screen 117 and her GBS is positive. PAST MEDICAL HISTORY: She has a history of kidney infection and frequent urinary tract infections (UTI), ectopic , HSV, childhood varicella. SURGERIES: Ectopic salpingectomy, colonoscopy, endoscopy and cystoscopy. FAMILY HISTORY: Hypertension, thyroid dysfunction. SOCIAL HISTORY: The patient is single. However, her partner has presented with her throughout her and is with her as well as a family member for support during labor today. She did smoke throughout her 1-3 cigarettes a day. She denies alcohol use. Denies drug use. Again positive history for HSV II. Denies history of abuse physical, sexual and emotional. ALLERGIES: PENICILLIN. CURRENT MEDICATIONS: Omeprazole, vitamins, Valtrex 500 mg. OBJECTIVE: Temperature 97.9, pulse 93, respirations 18, blood pressure 106/72. She is alert and oriented times three. She does appear uncomfortable with her contractions. She is tensing and wincing and grimacing with her contractions. heart rate is 120 with moderate variability, positive accelerations , no decelerations observed. Koby approximately every three minutes. Sterile vaginal exam by RN, Juanita Mares, 4 cm dilated, 70% effaced, minus three station with a bulging bag of water, positive bloody show. Abdomen is gravid, cephalic presentation. Estimated weight 7 pounds 6 ounces. ASSESSMENT: Intrauterine at 39-3/7 weeks. heart rate category one, active labor. PLAN: Admit the patient to labor and delivery, labs, out of bed ad body. Clear liquid diet. The patient declines epidural at this time and does desire some intravenous (IV) pain medications to cope with her labor. Group B streptococcus (GBS) prophylaxis antibiotics will be started. One she has been treated appropriately, artificial rupture of membranes (AROM) will be employed to augment her labor. I do anticipate continued labor progress and a normal spontaneous vaginal delivery.
[2017-03-26] MEDS ORDERED: FENTANYL 2MCG/ML ROPIVACAINE 0.2% IN 0.9% NACL 200ML IVBAG As Ordered ONE (07:54)
[2017-03-26] MEDS ORDERED: ePHEDrine SULFATE 25 MG/5 ML(5MG/ML) SYRINGE IV PRN (08:45)
[2017-03-26] MEDS ORDERED: EPIDURAL/PCA KEYS XX PRN (08:45)
[2017-03-26] MEDS ORDERED: REFRIGERATOR IV KEYS XX PRN (08:45)
[2017-03-26] MEDS ORDERED: EPIDURAL COMMENT XX SCH (08:45)
[2017-03-26] MEDS ORDERED: diphenhydrAMINE INJ 50MG/ML VIAL (J1200) IV PRN (08:45)
[2017-03-26] MEDS ORDERED: LACTATED RINGER'S 1000 ML IV PRN (08:45)
[2017-03-26] MEDS ORDERED: NALOXONE INJ 0.4 MG/1 ML VIAL (J2310) IV PRN (08:45)
[2017-03-26] MEDS ORDERED: ONDANSETRON 4MG/2ML VIAL (J2405) IV PRN (08:45)
[2017-03-26] MEDS ORDERED: FENTANYL/ROPIVACAINE/NACL BAG 200 ML EPIDURAL SCH (08:45)
[2017-03-26] MEDS ORDERED: OXYTOCIN DRIP 30 UNITS in APPROPRIATE DILUENT 1 EA IV SCH ×2 (10:30→11:06)
[2017-03-26] MEDS ORDERED: RHOGAM 300 MCG (1500 IU) INJ (J2790) IM SCH (11:15)
[2017-03-26] MEDS ORDERED: ANUSOL HC CREAM 30GM TOP PRN (11:15)
[2017-03-26] MEDS ORDERED: DIBUCAINE 1% OINTMENT 30GM TOP PRN (11:15)
[2017-03-26] MEDS ORDERED: MEASLES,MUMPS,RUBELLA VACCINE INJ (MMR-II) (90707) SC SCH (11:15)
[2017-03-26] MEDS ORDERED: ACETAMINOPHEN 500 MG TAB PO PRN (11:15)
[2017-03-26] MEDS ORDERED: METHYLERGONOVINE MALEATE 0.2 MG TAB PO PRN (11:15)
[2017-03-26] MEDS ORDERED: DOCUSATE SODIUM 100 MG CAP PO PRN (11:15)
[2017-03-26] MEDS ORDERED: MOM 30ML SUSPENSION UDC PO PRN (11:15)
--- NOTE | 2017-03-26 12:15 | DN ---
DATE: 03/26/2017 Elsy is a 21-year-old, 4, para 3-0-1-3 now, who was admitted to labor and delivery in active labor. She did progress to full dilation at 1054. She pushed to a normal spontaneous vaginal delivery of a live male in occiput anterior (OA) position with restitution to left occiput posterior (LOT) position at 1103. The shoulders delivered with gentle downward guidance and the corpus immediately followed. The was placed on the maternal abdomen crying and active. His mouth and nares were bulb suctioned. The cord was clamped times two and cut by the father of the baby. Of note, there was a nuchal cord times two loose that was reduced manually at the time of delivery. Uterine hemostasis was achieved with IV Pitocin rapid infusion and uterine fundal massage. Estimated blood loss 300 mL. Perineum and vagina were inspected and noted to have an intact vagina with no need for any repair. The male weighed 3200 grams, 7 pounds 1 ounce, Apgars 8 and 9. The family have decided to name their son, Payam, and the mom does plan to attempt to breastfeed. At the close of delivery, instrument and lap counts were correct and verified.
[2017-03-26] MEDS: PRENATAL VITAMIN TAB PO SCH (14:37)
[2017-03-26] MEDS: IBUPROFEN 800 MG TAB PO PRN (14:38)
[2017-03-27 05:50] VITALS: BP 92/51
[2017-03-27] MEDS: IBUPROFEN 800 MG TAB PO PRN ×2 (08:29→21:57)
[2017-03-27] MEDS: PRENATAL VITAMIN TAB PO SCH (08:29)
[2017-03-28 05:42] VITALS: BP 127/80
[2017-03-28] MEDS: PRENATAL VITAMIN TAB PO SCH (07:36)
[2017-03-28] MEDS ORDERED: ACET50TA PO (11:09)
[2017-03-28] MEDS ORDERED: MILKSUS PO (11:09)
[2017-03-28] MEDS ORDERED: IBUP-1114 PO (11:09)
[2017-03-28] MEDS ORDERED: COLA100C3 PO (11:09)
[2017-03-28] MEDS ORDERED: medroxyPROGESTERone ACET IM SUSP 150 MG/ML VIAL (J1050) IM ONE (13:00)
== END 2017-03-28 12:10 | disposition home or self-care (01) | DRG 560 ==
LOC: M LDO 03:29 → M LDI 04:06 → M OBS 13:05
PROVIDERS: ADMIT Advanced Practice Midwife; ATTEND Advanced Practice Midwife
PROC: 10E0XZZ Delivery of Products of Conception, External Approach (ICD-10-PCS; principal; 2017-03-26)
DX: O98.52 Other viral diseases complicating childbirth (principal); B00.9 Herpesviral infection, unspecified; O99.344 Other mental disorders complicating childbirth; Z37.0 Single live birth; Z3A.39 39 weeks gestation of pregnancy; O99.824 Streptococcus B carrier state complicating childbirth; O99.334 Smoking (tobacco) complicating childbirth; O69.82X0 Labor and delivery complicated by other cord entanglement, without compression, not applicable or unspecified; F32.9 Major depressive disorder, single episode, unspecified; F41.8 Other specified anxiety disorders; Z79.899 Other long term (current) drug therapy; Z87.440 Personal history of urinary (tract) infections; Z88.0 Allergy status to penicillin; F17.210 Nicotine dependence, cigarettes, uncomplicated; Z82.49 Family history of ischemic heart disease and other diseases of the circulatory system; Z83.49 Family history of other endocrine, nutritional and metabolic diseases

== ENCOUNTER 2017-06-11 22:36 | Emergency (ER) | payer OTHER ==
[~2017-06-11] VITALS: Ht 160 cm; Wt 55.3 kg
[2017-06-11 22:36] VITALS: BP 133/93
[~2017-06-11 22:36] MED LIST changes: +COLA100C5 PO; +IBUP-1114 PO; +MILKSUS PO
[2017-06-11] MEDS ORDERED: VALT500T PO (22:48)
[2017-06-11] MEDS ORDERED: DEPOPROVERA IM (22:48)
[2017-06-13] MEDS ORDERED: CIPR-249 PO (14:10)
[2017-06-13] MEDS ORDERED: ZOFR4TAB3 PO (14:10)
[2017-06-13] MEDS ORDERED: ULTR50TA8 PO (14:10)
== END 2017-06-12 00:54 | disposition left against medical advice (07) ==
LOC: M ED 22:36
DX: F50.9 Eating disorder, unspecified (principal); R10.9 Unspecified abdominal pain; M54.9 Dorsalgia, unspecified; Z53.21 Procedure and treatment not carried out due to patient leaving prior to being seen by health care provider

== ENCOUNTER 2017-06-13 11:39 | Emergency (ER) | payer OTHER ==
[~2017-06-13] VITALS: Ht 162.6 cm; Wt 54.5 kg
[~2017-06-13 11:39] MED LIST changes: +DEPOPROVERA IM; +VALT500T PO
[2017-06-13] MEDS ORDERED: KETOROLAC 30 MG/ML VIAL (J1885) IV ONE (12:45)
[2017-06-13] MEDS ORDERED: ONDANSETRON 4MG/2ML VIAL (J2405) IV ONE (12:45)
[2017-06-13 13:05] LABS: BASO # 0.1 K/mm3 (0.0-0.2); BASO % 0.5 % (0.0-1.0); EOS # 0.1 K/mm3 (0.0-0.50); LARGE UNSTAINED CELL # 0.3 K/mm3 (0.0-0.4); LARGE UNSTAINED CELL % 2.3 % (0.0-4.0); LYMPH # 1.4 K/mm3 (1.5-6.5); LYMPH % 10.5 % (24.0-44.0); MEAN CORPUSCULAR HEMOGLOBIN 29.1 pg (27.0-33.0); MEAN CORPUSCULAR HGB CONC 32.1 g/dl (32.0-36.5); MEAN CORPUSCULAR VOLUME 90.4 fl (80.0-96.0); MONO # 1.3 K/mm3 (0.0-0.8); MONO % 9.8 % (0.0-5.0); NEUTROPHILS # 9.8 K/mm3 (1.8-7.7); NEUTROPHILS % 75.8 % (36.0-66.0); PLATELET COUNT, AUTOMATED 238 k/mm3 (150-450); RED CELL DISTRIBUTION WIDTH 14.7 % (11.5-14.5); WHITE BLOOD COUNT 12.9 K/mm3 (4.0-10.0)
[2017-06-13 13:23] LABS: ALBUMIN/GLOBULIN RATIO 1.03 (1.00-1.93); ALKALINE PHOSPHATASE 64 U/L (45-117); ALT/SGPT 21 U/L (12-78); AMYLASE 32 U/L (25-115); ANION GAP 5 MEQ/L (8-16); AST/SGOT 9 U/L (15-37); BILIRUBIN,TOTAL 0.5 MG/DL (0.2-1.0); BLOOD UREA NITROGEN 4 MG/DL (7-18); CALCIUM LEVEL 9.3 MG/DL (8.5-10.1); CARBON DIOXIDE LEVEL 27 MEQ/L (21-32); CHLORIDE LEVEL 106 MEQ/L (98-107); CREATININE FOR GFR 0.66 MG/DL (0.55-1.02); GLOMERULAR FILTRATION RATE > 60.0 (>60); GLUCOSE, FASTING 76 MG/DL (70-105); POTASSIUM SERUM 3.9 MEQ/L (3.5-5.1); SODIUM LEVEL 138 MEQ/L (136-145); TOTAL PROTEIN 7.9 GM/DL (6.4-8.2)
[2017-06-13] MEDS ORDERED: ULTR50TA8 PO (14:10)
[2017-06-13] MEDS ORDERED: CIPR-249 PO (14:10)
[2017-06-13] MEDS ORDERED: ZOFR4TAB3 PO (14:10)
--- NOTE | 2017-06-13 14:13 | REP ---
CT ABDOMEN AND PELVIS WITHOUT IV CONTRAST: CT abdomen and pelvis performed without oral or IV contrast. Sagittal and coronal reconstruction images are performed. The visualized lung bases are clear. The liver, spleen, adrenals, pancreas and right kidney are grossly unremarkable. Left kidney demonstrates a small cyst in the upper pole. There is mild left hydroureteronephrosis without a ureteral or bladder calculus. The mild hydronephrosis could be due to ureteral edema from a recently passed stone. There is a 2 mm intrarenal stone in the lower pole of the left kidney. There is no abdominal aortic aneurysm. No adenopathy is seen. There is no free air or free fluid. No definite bowel wall thickening is seen. No gross pelvic mass is seen. IMPRESSION: Mild left hydroureteronephrosis without a ureteral or bladder calculus. Findings could be due to ureteral edema from a recently passed stone. There is a 2 mm left intrarenal calculus. Signed by James Tadeo MD 06/13/2017 07:30 P
[2017-06-13] MEDS ORDERED: ACETAMINOPHEN TAB 650MG DOSE (2X325MG) PO ONE (14:15)
[2017-06-13] MEDS ORDERED: ACETAMINOPHEN TAB 650MG DOSE (2X325MG) As Ordered ONE (14:16)
[2017-06-13 14:22] VITALS: BP 108/61
== END 2017-06-13 14:23 | disposition home or self-care (01) ==
LOC: M ED 12:34
DX: R10.9 Unspecified abdominal pain (principal); N10 Acute pyelonephritis; N20.0 Calculus of kidney; N13.30 Unspecified hydronephrosis; R11.2 Nausea with vomiting, unspecified; F32.9 Major depressive disorder, single episode, unspecified; Z79.3 Long term (current) use of hormonal contraceptives; Z79.899 Other long term (current) drug therapy
CPT/HCPCS: 74176; 80053; 81001; 81025; 82150; 83690; 85025; 86140; 87088; 87186; 96374; 96375; 99283; J1885; J2405

== ENCOUNTER 2018-01-05 20:38 | Emergency (ER) | payer OTHER ==
[2018-01-05] MEDS: KETOROLAC 30 MG/ML VIAL (J1885) IV (23:54)
[2018-01-05] MEDS: ONDANSETRON 4MG/2ML VIAL (J2405) IV (23:54)
[2018-01-06] MEDS: METOCLOPRAMIDE INJ 10MG/2ML VIAL (J2765) IV (01:15)
== END 2018-01-06 02:57 | disposition home or self-care (01) ==
LOC: M ED 01-06 02:57
DX: S06.0X0A Concussion without loss of consciousness, initial encounter (principal); W20.8XXA Other cause of strike by thrown, projected or falling object, initial encounter; Y92.9 Unspecified place or not applicable; Y93.9 Activity, unspecified; K58.9 Irritable bowel syndrome, unspecified; Z87.440 Personal history of urinary (tract) infections; Z79.899 Other long term (current) drug therapy; Z79.3 Long term (current) use of hormonal contraceptives
CPT/HCPCS: J2405

== ENCOUNTER → 2018-01-14 | Outpatient (CLI) | payer OTHER ==
[2018-01-14 08:45] LABS: BASO % 0.6 % (0.0-1.0); EOS # 0.1 10^3/uL (0.0-0.50); HEMATOCRIT 39.2 % (36.0-47.0); HEMOGLOBIN 12.8 g/dl (12.0-16.0); IMMATURE GRANULOCYTE % 0.6 % (0-3.0); LYMPH # 2.6 10^3/uL (1.5-6.5); LYMPH % 38.3 % (24.0-44.0); MEAN CORPUSCULAR HEMOGLOBIN 30.2 pg (27.0-33.0); MEAN CORPUSCULAR HGB CONC 32.7 g/dl (32.0-36.5); MEAN CORPUSCULAR VOLUME 92.5 fl (80.0-96.0); MONO # 0.5 10^3/uL (0.0-0.8); MONO % 7.8 % (0.0-5.0); NEUTROPHILS # 3.4 10^3/uL (1.8-7.7); NEUTROPHILS % 50.7 % (36.0-66.0); PLATELET COUNT, AUTOMATED 230 10^3/uL (150-450); RED BLOOD COUNT 4.24 10^6/uL (4.00-5.40); WHITE BLOOD COUNT 6.7 10^3/uL (4.0-10.0)
[2018-01-14 08:50] LABS: APPEARANCE, URINE HAZY (CLEAR); BACTERIA, URINE AUTO NEGATIVE (NEGATIVE); BILIRUBIN, URINE AUTO NEGATIVE (NEGATIVE); BLOOD, URINE BLOOD NEGATIVE (NEGATIVE); COLOR, URINE YELLOW (YELLOW); GLUCOSE, URINE (UA) AUTO NEGATIVE (NEGATIVE); KETONE, URINE AUTO TRACE mg/dL (NEGATIVE); LEUKOCYTE ESTERASE, URINE AUTO TRACE (NEGATIVE); MUCUS, URINE LARGE (NEGATIVE); NITRITE, URINE AUTO NEGATIVE (NEGATIVE); PROTEIN, URINE AUTO NEGATIVE (NEGATIVE); RBC, URINE AUTO 1 /HPF (0-3); SPECIFIC GRAVITY URINE AUTO 1.028 (1.002-1.035); SQUAMOUS EPITHELIAL CELL UR AU 1 /HPF (0-6); UROBILINOGEN, URINE AUTO 0.2 mg/dL (0.0-2.0); WBC, URINE AUTO 4 /HPF (0-3)
[2018-01-14 09:12] LABS: ALBUMIN 4.2 GM/DL (3.2-5.2); ALBUMIN/GLOBULIN RATIO 1.45 (1.00-1.93); ALKALINE PHOSPHATASE 56 U/L (45-117); ALT/SGPT 20 U/L (12-78); ANION GAP 6 MEQ/L (8-16); AST/SGOT 13 U/L (7-37); BILIRUBIN,TOTAL 0.3 MG/DL (0.2-1.0); BLOOD UREA NITROGEN 11 MG/DL (7-18); CALCIUM LEVEL 8.6 MG/DL (8.5-10.1); CARBON DIOXIDE LEVEL 29 MEQ/L (21-32); CHLORIDE LEVEL 107 MEQ/L (98-107); CREATININE FOR GFR 0.61 MG/DL (0.55-1.30); GLOMERULAR FILTRATION RATE > 60.0 (>60); GLUCOSE, FASTING 77 MG/DL (70-100); POTASSIUM SERUM 3.8 MEQ/L (3.5-5.1); SODIUM LEVEL 142 MEQ/L (136-145); TOTAL PROTEIN 7.1 GM/DL (6.4-8.2)
[2018-01-14 09:27] LABS: ERYTHROCYTE SEDIMENTATION RATE 4 mm/hr (0-20)
[2018-01-14 09:44] LABS: CORTISOL AM 6.4 UG/DL (4.3-22.4)
[2018-01-14 10:24] LABS: HIV 1&2 SCREEN CENTAUR NEGATIVE (NEGATIVE)
[2018-01-14 10:48] LABS: CHLAMYDIA DNA AMPLIFICATION NEGATIVE (NEGATIVE); GC DNA AMPLIFICATION NEGATIVE (NEGATIVE)
== END ==
LOC: M LAB 08:03
DX: K59.09 Other constipation (principal); Z00.01 Encounter for general adult medical examination with abnormal findings; F34.1 Dysthymic disorder
CPT/HCPCS: 82533

== ENCOUNTER → 2018-01-21 | Outpatient (REF) | payer OTHER ==
[2018-01-21 18:42] LABS: FREE T4 0.93 NG/DL (0.76-1.46)
[2018-01-21 19:47] LABS: TOTAL 25(OH) VITAMIN D 27.2 NG/ML (30.0-100.0)
== END ==
LOC: M LAB REF 16:38
DX: K59.09 Other constipation (principal)

== ENCOUNTER → 2018-01-31 | Outpatient (CLI) | payer OTHER | LOC: M RAD 13:41 | DX: K59.09 Other constipation (principal) | CPT/HCPCS: 74018 ==

== ENCOUNTER 2018-07-05 18:28 | Emergency (ER) | payer OTHER ==
[2018-07-05] MEDS: KETOROLAC 30 MG/ML VIAL (J1885) IV (17:22)
[2018-07-05] MEDS: ONDANSETRON 4MG/2ML VIAL (J2405) IV (17:22)
[2018-07-05] MEDS: NS 1,000 ML IV (17:23)
[2018-07-05 17:38] LABS: BASO % 0.4 % (0.0-1.0); EOS # 0.1 10^3/uL (0.0-0.50); EOS % 1.6 % (0.0-3.0); HEMATOCRIT 41.5 % (36.0-47.0); HEMOGLOBIN 13.6 g/dl (12.0-15.5); IMMATURE GRANULOCYTE % 0.4 % (0-3.0); LYMPH # 1.5 10^3/uL (1.5-6.5); LYMPH % 17.7 % (24.0-44.0); MEAN CORPUSCULAR HEMOGLOBIN 29.9 pg (27.0-33.0); MEAN CORPUSCULAR HGB CONC 32.8 g/dl (32.0-36.5); MEAN CORPUSCULAR VOLUME 91.2 fl (80.0-96.0); MONO # 1.2 10^3/uL (0.0-0.8); MONO % 14.7 % (0.0-5.0); NEUTROPHILS # 5.5 10^3/uL (1.8-7.7); NEUTROPHILS % 65.2 % (36.0-66.0); PLATELET COUNT, AUTOMATED 173 10^3/uL (150-450); RED BLOOD COUNT 4.55 10^6/uL (4.00-5.40); RED CELL DISTRIBUTION WIDTH 13.6 % (11.5-14.5); WHITE BLOOD COUNT 8.4 10^3/uL (4.0-10.0)
[2018-07-05 17:49] LABS: KETONE, URINE AUTO RFX NEGATIVE (NEGATIVE); NITRITE, URINE AUTO RFX NEGATIVE (NEGATIVE); RBC, URINE AUTO RFX 2 /HPF (0-3); SPECIFIC GRAVITY UR AUTO RFX 1.014 (1.002-1.035); SQUAM EPITHELIAL CELL UR AURFX 6 /HPF (0-6); WBC, URINE AUTO RFX 7 /HPF (0-3)
[2018-07-05 17:55] LABS: LEUKOCYTE ESTERASE UR AUTO RFX 1+ (NEGATIVE)
[2018-07-05 17:58] LABS: LACTIC ACID SEPSIS PROTOCOL 0.7 MMOL/L (0.4-2.0)
[2018-07-05 18:03] LABS: ALBUMIN 3.9 GM/DL (3.2-5.2); ALBUMIN/GLOBULIN RATIO 1.08 (1.00-1.93); ALKALINE PHOSPHATASE 55 U/L (45-117); ALT/SGPT 18 U/L (12-78); ANION GAP 9 MEQ/L (8-16); AST/SGOT 14 U/L (7-37); BILIRUBIN,DIRECT < 0.1 MG/DL (0.0-0.2); BILIRUBIN,TOTAL 0.2 MG/DL (0.2-1.0); BLOOD UREA NITROGEN 10 MG/DL (7-18); CALCIUM LEVEL 8.5 MG/DL (8.5-10.1); CARBON DIOXIDE LEVEL 25 MEQ/L (21-32); CHLORIDE LEVEL 109 MEQ/L (98-107); CREATININE FOR GFR 0.67 MG/DL (0.55-1.30); GLOMERULAR FILTRATION RATE > 60.0 (>60); GLUCOSE, FASTING 80 MG/DL (70-100); HCG, SERUM QUANTITATIVE < 1.0 MIU/ML; LIPASE 160 U/L (73-393); POTASSIUM SERUM 3.5 MEQ/L (3.5-5.1); SODIUM LEVEL 143 MEQ/L (136-145); TOTAL PROTEIN 7.5 GM/DL (6.4-8.2)
== END 2018-07-05 19:30 | disposition home or self-care (01) ==
LOC: M ED 18:28
DX: N30.90 Cystitis, unspecified without hematuria (principal); N20.0 Calculus of kidney; F41.9 Anxiety disorder, unspecified; F33.9 Major depressive disorder, recurrent, unspecified; Z79.899 Other long term (current) drug therapy; Z79.3 Long term (current) use of hormonal contraceptives; F17.210 Nicotine dependence, cigarettes, uncomplicated
CPT/HCPCS: J2405

== ENCOUNTER 2018-07-06 17:57 | Emergency (ER) | payer OTHER ==
[2018-07-06 19:07] LABS: BASO % 0.4 % (0.0-1.0); EOS # 0.1 10^3/uL (0.0-0.50); EOS % 1.8 % (0.0-3.0); HEMOGLOBIN 13.1 g/dl (12.0-15.5); IMMATURE GRANULOCYTE % 0.3 % (0-3.0); LYMPH # 1.9 10^3/uL (1.5-6.5); LYMPH % 26.1 % (24.0-44.0); MEAN CORPUSCULAR HEMOGLOBIN 29.7 pg (27.0-33.0); MONO # 0.7 10^3/uL (0.0-0.8); MONO % 9.6 % (0.0-5.0); NEUTROPHILS # 4.4 10^3/uL (1.8-7.7); NEUTROPHILS % 61.8 % (36.0-66.0); PLATELET COUNT, AUTOMATED 173 10^3/uL (150-450); RED BLOOD COUNT 4.41 10^6/uL (4.00-5.40); RED CELL DISTRIBUTION WIDTH 13.7 % (11.5-14.5); WHITE BLOOD COUNT 7.1 10^3/uL (4.0-10.0)
[2018-07-06] MEDS: KETOROLAC 30 MG/ML VIAL (J1885) IV (20:03)
== END 2018-07-06 20:43 | disposition home or self-care (01) ==
LOC: M ED 17:57
DX: J02.8 Acute pharyngitis due to other specified organisms (principal); R10.9 Unspecified abdominal pain; M54.5 Low back pain; F41.9 Anxiety disorder, unspecified; F32.9 Major depressive disorder, single episode, unspecified; Z87.440 Personal history of urinary (tract) infections; Z72.0 Tobacco use; Z79.899 Other long term (current) drug therapy; Z79.3 Long term (current) use of hormonal contraceptives
CPT/HCPCS: J1885

== ENCOUNTER → 2018-08-12 | Outpatient (REF) | payer OTHER ==
[2018-08-12 18:12] LABS: BASO % 0.5 % (0.0-1.0); EOS # 0.1 10^3/uL (0.0-0.50); EOS % 1.9 % (0.0-3.0); HEMATOCRIT 40.6 % (36.0-47.0); IMMATURE GRANULOCYTE % 0.8 % (0-3.0); LYMPH # 2.1 10^3/uL (1.5-6.5); LYMPH % 28.3 % (24.0-44.0); MEAN CORPUSCULAR HEMOGLOBIN 29.5 pg (27.0-33.0); MEAN CORPUSCULAR VOLUME 92.3 fl (80.0-96.0); MONO # 0.8 10^3/uL (0.0-0.8); MONO % 10.4 % (0.0-5.0); NEUTROPHILS # 4.4 10^3/uL (1.8-7.7); NEUTROPHILS % 58.1 % (36.0-66.0); PLATELET COUNT, AUTOMATED 283 10^3/uL (150-450); RED CELL DISTRIBUTION WIDTH 13.4 % (11.5-14.5); WHITE BLOOD COUNT 7.5 10^3/uL (4.0-10.0)
[2018-08-12 18:48] LABS: ALBUMIN/GLOBULIN RATIO 1.18 (1.00-1.93); ALKALINE PHOSPHATASE 57 U/L (45-117); ALT/SGPT 18 U/L (12-78); ANION GAP 9 MEQ/L (8-16); AST/SGOT 12 U/L (7-37); BILIRUBIN,TOTAL 0.2 MG/DL (0.2-1.0); BLOOD UREA NITROGEN 8 MG/DL (7-18); CALCIUM LEVEL 9.1 MG/DL (8.5-10.1); CARBON DIOXIDE LEVEL 26 MEQ/L (21-32); CHLORIDE LEVEL 110 MEQ/L (98-107); CREATININE FOR GFR 0.66 MG/DL (0.55-1.30); GLOMERULAR FILTRATION RATE > 60.0 (>60); GLUCOSE, FASTING 72 MG/DL (70-100); POTASSIUM SERUM 3.8 MEQ/L (3.5-5.1); SODIUM LEVEL 145 MEQ/L (136-145); TOTAL PROTEIN 7.4 GM/DL (6.4-8.2)
[2018-08-15 08:10] LABS: CONTROL LINE MONO INT CTR LINE PRESENT; MONO SCRN NEGATIVE (NEGATIVE)
== END ==
LOC: M LAB REF 17:04
DX: J02.8 Acute pharyngitis due to other specified organisms (principal)

== ENCOUNTER → 2018-09-16 | Outpatient (CLI) | payer MEDICAID | LOC: M RAD 11:53 | DX: R05 Cough (principal) | CPT/HCPCS: 71046 ==

== ENCOUNTER 2018-10-16 12:23 | Emergency (ER) | payer MEDICAID ==
[2018-10-16] MEDS: NS 1,000 ML IV (13:00)
[2018-10-16 13:08] LABS: HEMATOCRIT 41.1 % (36.0-47.0); HEMOGLOBIN 13.7 g/dl (12.0-15.5); MEAN CORPUSCULAR HEMOGLOBIN 29.1 pg (27.0-33.0); MEAN CORPUSCULAR HGB CONC 33.3 g/dl (32.0-36.5); MEAN CORPUSCULAR VOLUME 87.3 fl (80.0-96.0); PLATELET COUNT, AUTOMATED 184 10^3/uL (150-450); RED BLOOD COUNT 4.71 10^6/uL (4.00-5.40); RED CELL DISTRIBUTION WIDTH 13.2 % (11.5-14.5)
[2018-10-16 13:09] LABS: ADD MANUAL DIFFER YES; DIFF SLIDE NUMBER 107; POSITIVE MORPH POS FLAG
[2018-10-16 13:29] LABS: ANION GAP 8 MEQ/L (8-16); BLOOD UREA NITROGEN 8 MG/DL (7-18); CALCIUM LEVEL 8.5 MG/DL (8.5-10.1); CARBON DIOXIDE LEVEL 26 MEQ/L (21-32); CHLORIDE LEVEL 108 MEQ/L (98-107); CREATININE FOR GFR 0.53 MG/DL (0.55-1.30); GLOMERULAR FILTRATION RATE > 60.0 (>60); GLUCOSE, FASTING 96 MG/DL (70-100); POTASSIUM SERUM 3.4 MEQ/L (3.5-5.1); SODIUM LEVEL 142 MEQ/L (136-145)
[2018-10-16 13:41] LABS: CONTROL LINE HCG INT CTR LINE PRESENT; HCG, SERUM QUALITATIVE NEGATIVE (NEGATIVE)
[2018-10-16] MEDS: POTASSIUM CHLORIDE 10 MEQ SR TABLET PO (13:49)
[2018-10-16 13:58] LABS: ATYPICAL LYMPH 6 % (0-5); BANDS 1 % (< 11); LYMPHOCYTES 30 % (16-52); MONOCYTES 2 % (0-8); NEUTROPHILS 61 % (35-75); PLATELET ESTIMATE NORMAL (NORMAL)
[2018-10-16] MEDS: SIMETHICONE 80 MG CHEW TAB PO (15:24)
== END 2018-10-16 16:22 | disposition home or self-care (01) ==
LOC: M ED 12:23
DX: K59.00 Constipation, unspecified (principal)
CPT/HCPCS: 74018

== ENCOUNTER → 2018-11-26 | Outpatient (REF) | payer OTHER ==
[~2018-11-26] MED LIST changes: +ACET30TAB PO; +ACET500T15 PO; +BACT800T5 PO; +CIPR-249 PO; +FLUO40CA PO; +GABA-843 PO; +IBUP200C25 PO; +KETO10TAB PO; +MAPA500T2 PO; +MILK120011 PO; -MILKSUS PO; +MIRA3350 PO; +NITR100C2; +PHEN-501; +REGL10TA6 PO; +ULTR50TA8 PO; +ZOFR4TAB14 PO
[2018-11-26 21:59] LABS: APPEARANCE, URINE HAZY (CLEAR); BACTERIA, URINE AUTO NEGATIVE (NEGATIVE); BILIRUBIN, URINE AUTO NEGATIVE (NEGATIVE); BLOOD, URINE BLOOD NEGATIVE (NEGATIVE); COLOR, URINE YELLOW (YELLOW); GLUCOSE, URINE (UA) AUTO NEGATIVE (NEGATIVE); KETONE, URINE AUTO 1+ mg/dL (NEGATIVE); LEUKOCYTE ESTERASE, URINE AUTO NEGATIVE (NEGATIVE); MUCUS, URINE MODERATE (NEGATIVE); NITRITE, URINE AUTO NEGATIVE (NEGATIVE); PROTEIN, URINE AUTO NEGATIVE (NEGATIVE); RBC, URINE AUTO 1 /HPF (0-3); SPECIFIC GRAVITY URINE AUTO 1.016 (1.002-1.035); SQUAMOUS EPITHELIAL CELL UR AU 2 /HPF (0-6); UROBILINOGEN, URINE AUTO 0.2 mg/dL (0.0-2.0); WBC, URINE AUTO 1 /HPF (0-3)
== END ==
LOC: M LAB REF 11:00
PROVIDERS: ATTEND Physician Assistant Medical
DX: N39.0 Urinary tract infection, site not specified (principal)

== ENCOUNTER → 2019-05-09 | Outpatient (REF) | payer OTHER ==
[~2019-05-09] MED LIST changes: -/ACETCOD2T PO; -/ONDA4TA PO; +ACET-716 PO; +ACET1TAB15 PO; -ACET30TAB PO; -ACET50TA PO; -DOCU10ELUD PO; +DOCU5LIQ PO; +MAPA500T17 PO; +ONDA-1 PO
[2019-05-09 13:17] LABS: APPEARANCE, URINE CLOUDY (CLEAR); BACTERIA, URINE AUTO 2+ (NEGATIVE); BILIRUBIN, URINE AUTO NEGATIVE (NEGATIVE); BLOOD, URINE BLOOD 3+ (NEGATIVE); COLOR, URINE AMBER (YELLOW); GLUCOSE, URINE (UA) AUTO NEGATIVE (NEGATIVE); KETONE, URINE AUTO NEGATIVE (NEGATIVE); LEUKOCYTE ESTERASE, URINE AUTO 3+ (NEGATIVE); MUCUS, URINE SMALL (NEGATIVE); NITRITE, URINE AUTO NEGATIVE (NEGATIVE); PROTEIN, URINE AUTO 2+ mg/dL (NEGATIVE); RBC, URINE AUTO TNTC /HPF (0-3); SPECIFIC GRAVITY URINE AUTO 1.017 (1.002-1.035); SQUAMOUS EPITHELIAL CELL UR AU 7 /HPF (0-6); UROBILINOGEN, URINE AUTO 0.2 mg/dL (0.0-2.0); WBC, URINE AUTO TNTC /HPF (0-3)
== END ==
LOC: M LAB REF 12:38
PROVIDERS: ATTEND Physician Assistant Medical
DX: N39.0 Urinary tract infection, site not specified (principal)

== ENCOUNTER → 2019-06-07 | Outpatient (CLI) | payer OTHER ==
[~2019-06-07] MED LIST changes: +DULO1CAP4 PO
[2019-06-07 14:02] LABS: FREE T4 0.76 NG/DL (0.76-1.46); THYROID STIMULATING HORMONE 2.14 uIU/ML (0.358-3.740)
== END ==
LOC: M LAB 12:37
PROVIDERS: ATTEND Internal Medicine Gastroenterology
DX: K58.1 Irritable bowel syndrome with constipation (principal)

== ENCOUNTER → 2019-06-07 | Outpatient (CLI) | payer MEDICAID | LOC: M OUTALCOH 09:22 | PROVIDERS: ATTEND Psychiatry & Neurology Psychiatry | DX: F10.10 Alcohol abuse, uncomplicated (principal) ==

== ENCOUNTER 2019-06-12 21:30 | Emergency (ER) | payer OTHER ==
[~2019-06-12] VITALS: Ht 160 cm; Wt 54.1 kg
[2019-06-12 21:30] VITALS: BP 143/93
== END 2019-06-12 23:11 | disposition left against medical advice (07) ==
LOC: M ED 21:30
DX: Z53.29 Procedure and treatment not carried out because of patient's decision for other reasons (principal)

== ENCOUNTER 2019-06-13 10:46 | Day surgery (SDC) | payer OTHER ==
[~2019-06-13] VITALS: Ht 160 cm; Wt 53.0 kg
[~2019-06-13 10:46] MED LIST changes: +NS 1,000 ML IV ONE
--- NOTE | 2019-06-13 12:12 | ROOR ---
Patient Name: Elsy Sal Procedure Date: 06/13/2019 12:00 PM Date of : 1995 Age: 23 Room: [facility] Gender: Female Note Status: Finalized Procedure: Upper GI endoscopy Indications: Generalized abdominal pain, Functional Dyspepsia, Nausea Providers: Froy MORSE MD Referring MD: Rodríguez ESTRADA MD Requesting Provider: Medicines: Monitored Anesthesia Care Complications: No immediate complications. Procedure: Pre-Anesthesia Assessment: - The heart rate, respiratory rate, oxygen saturations, blood pressure, adequacy of pulmonary ventilation, and response to care were monitored throughout the procedure. The Endoscope was introduced through the mouth, and advanced to the second part of duodenum. The upper GI endoscopy was accomplished without difficulty. The patient tolerated the procedure well. Findings: Very small (insignificant) Hiatal Hernia. The esophagus was normal. The stomach was normal. The examined duodenum was normal. Impression: - Normal esophagus. - Normal stomach with a very small (insignificant) Hiatal Hernia. - Normal examined duodenum. - No specimens collected. Recommendation: - Observe patient's clinical course. - Continue present medications. Froy Morse MD Froy MORSE MD 06/13/2019 12:12:20 PM Electronically signed by Froy MORSE MD Number of Addenda: 0 Note Initiated On: 06/13/2019 12:00 PM Estimated Blood Loss: Estimated blood loss: none.
--- NOTE | 2019-06-13 12:34 | ROOR ---
Patient Name: Elsy Sal Procedure Date: 06/13/2019 12:00 PM Date of : 1995 Age: 23 Room: [facility] Gender: Female Note Status: Finalized Procedure: Colonoscopy Indications: Irritable bowel syndrome with constipation, Mixed irritable bowel syndrome, Constipation Providers: Froy MORSE MD Referring MD: Rodríguez ESTRADA MD Requesting Provider: Medicines: Monitored Anesthesia Care Complications: No immediate complications. Procedure: Pre-Anesthesia Assessment: - The heart rate, respiratory rate, oxygen saturations, blood pressure, adequacy of pulmonary ventilation, and response to care were monitored throughout the procedure. The Colonoscope was introduced through the anus and advanced to 10 cm into the ileum. The colonoscopy was performed without difficulty. The patient tolerated the procedure well. The quality of the bowel preparation was good. Findings: The perianal and digital rectal examinations were normal. The colon (entire examined portion) was moderately redundant. Internal hemorrhoids were found during retroflexion. The hemorrhoids were medium-sized. Retroflexion in the right colon was performed. The exam was otherwise normal throughout the examined colon. The terminal ileum appeared normal. Impression: - Redundant colon. - Internal hemorrhoids. - The colon is otherwise normal. - The examined portion of the ileum was normal. - No specimens collected. Recommendation: - Start Linzess, stop Trulance (ineffective). - (the script was sent to your pharmacy on file) Froy Morse MD Froy MORSE MD 06/13/2019 12:34:16 PM Electronically signed by Froy MORSE MD Number of Addenda: 0 Note Initiated On: 06/13/2019 12:00 PM Estimated Blood Loss: Estimated blood loss: none.
[2019-06-13] MEDS ORDERED: LIDOCAINE 2% INJ 100 MG/5 ML SDV (FOR ANES.) As Ordered ONE (12:44)
[2019-06-13] MEDS ORDERED: PROPOFOL 200 MG/20 ML VIAL As Ordered ONE (12:44)
[2019-06-13] MEDS ORDERED: IPRATROPIUM 0.5MG/ALBUTEROL 2.5MG INH SOL UD 3ML (DUONEB)(J7620) As Ordered ONE (12:47)
[2019-06-13 13:34] VITALS: BP 135/76
[2019-06-13] MEDS ORDERED: IPRATROPIUM 0.5MG/ALBUTEROL 2.5MG INH SOL UD 3ML (DUONEB)(J7620) INH ONE (14:00)
== END 2019-06-13 13:34 | disposition home or self-care (01) ==
LOC: M OPP 10:46
PROVIDERS: ATTEND Internal Medicine Gastroenterology
DX: K64.8 Other hemorrhoids (principal); K58.1 Irritable bowel syndrome with constipation; K58.2 Mixed irritable bowel syndrome; K59.00 Constipation, unspecified; Q43.8 Other specified congenital malformations of intestine; R10.84 Generalized abdominal pain; K30 Functional dyspepsia; R11.0 Nausea; F17.210 Nicotine dependence, cigarettes, uncomplicated; Z79.899 Other long term (current) drug therapy

== ENCOUNTER → 2019-07-10 | Outpatient (CLI) | payer MEDICAID ==
[~2019-07-10] MED LIST changes: -NS 1,000 ML IV ONE
[2019-07-13 00:06] LABS: Lyme Disease IgG Ab 18 kDa Ban Present (.); Lyme Disease IgG Ab 23 kDa Ban Absent (.); Lyme Disease IgG Ab 28 kDa Ban Absent (.); Lyme Disease IgG Ab 30 kDa Ban Absent (.); Lyme Disease IgG Ab 39 kDa Ban Present (.); Lyme Disease IgG Ab 41 kDa Ban Absent (.); Lyme Disease IgG Ab 45 kDa Ban Absent (.); Lyme Disease IgG Ab 58 kDa Ban Absent (.); Lyme Disease IgG Ab 66 kDa Ban Absent (.); Lyme Disease IgG Ab 93 kDa Ban Absent (.); Lyme Disease IgG West Blot Int Negative (.); Lyme Disease IgG/IgM Antibodie 1.04 ISR (0.00-0.90); Lyme Disease IgM Ab 23 kDa Ban Present (.); Lyme Disease IgM Ab 39 kDa Ban Absent (.); Lyme Disease IgM Ab 41 kDa Ban Absent (.); Lyme Disease IgM Ab Quantitati <0.80 index (0.00-0.79); Lyme Disease IgM West Blot Int Negative (.)
== END ==
LOC: M SMT 12:12
PROVIDERS: ATTEND Physician Assistant Medical
DX: R53.83 Other fatigue (principal)

== ENCOUNTER 2019-07-20 10:00 | Outpatient (RCR) | payer MEDICAID | END 2019-07-22 | LOC: M OUTALCOH 10:00 | PROVIDERS: ATTEND Psychiatry & Neurology Psychiatry | DX: F10.10 Alcohol abuse, uncomplicated (principal) ==

== ENCOUNTER 2019-08-09 16:44 | Emergency (ER) | payer MEDICAID, OTHER ==
[~2019-08-09] VITALS: Ht 160 cm; Wt 52.7 kg
[2019-08-09] MEDS ORDERED: DULO1CAP6 (16:51)
[2019-08-09] MEDS ORDERED: diphenhydrAMINE INJ 50MG/ML VIAL (J1200) IV ONE (18:30)
[2019-08-09] MEDS ORDERED: NS 1,000 ML IV ONE (18:30)
[2019-08-09] MEDS ORDERED: METOCLOPRAMIDE INJ 10MG/2ML VIAL (J2765) IV ONE (18:30)
[2019-08-09] MEDS ORDERED: KETOROLAC 30 MG/ML VIAL (J1885) IV ONE (18:30)
[2019-08-09] MEDS ORDERED: MECLIZINE 25 MG TABLET PO ONE (18:30)
[2019-08-09 18:53] LABS: BASO # 0.1 10^3/uL (0.0-0.2); BASO % 0.9 % (0.0-1.0); EOS # 0.2 10^3/uL (0.0-0.5); EOS % 2.8 % (0.0-3.0); HEMATOCRIT 44.7 % (36.0-47.0); HEMOGLOBIN 14.2 g/dl (12.0-15.5); LYMPH % 37.5 % (24.0-44.0); MEAN CORPUSCULAR HEMOGLOBIN 30.5 pg (27.0-33.0); MEAN CORPUSCULAR HGB CONC 31.8 g/dl (32.0-36.5); MEAN CORPUSCULAR VOLUME 95.9 fl (80.0-96.0); MONO # 0.7 10^3/uL (0.0-0.8); MONO % 8.9 % (0.0-5.0); NEUTROPHILS # 3.9 10^3/uL (1.5-8.5); NEUTROPHILS % 49.5 % (36.0-66.0); PLATELET COUNT, AUTOMATED 231 10^3/uL (150-450); RED BLOOD COUNT 4.66 10^6/uL (4.00-5.40); WHITE BLOOD COUNT 7.9 10^3/uL (4.0-10.0)
[2019-08-09 19:27] LABS: MONO REFLEX EBV COMP NEGATIVE (NEGATIVE)
--- NOTE | 2019-08-09 19:39 | REPVR ---
PROCEDURE INFORMATION: Exam: CT Head Without Contrast Exam date and time: 08/09/2019 7:24 PM Clinical history: 23 years old, female; Dizziness; Additional info: Dizzy, headache, blurry vision TECHNIQUE: Imaging protocol: Computed tomography of the head without contrast. Radiation optimization: All CT scans at this facility use at least one of these dose optimization techniques: automated exposure control; mA and/or kV adjustment per patient size (includes targeted exams where dose is matched to clinical indication); or iterative reconstruction. COMPARISON: CT Head without contrast 01/05/2018 11:38 PM FINDINGS: Brain: Normal. No hemorrhage. Unremarkable white matter. No mass effect. Ventricles: Normal. No ventriculomegaly. Bones/joints: Unremarkable. No acute fracture. Sinuses: Visualized sinuses are unremarkable. No fluid levels. Mastoid air cells: Visualized mastoid air cells are well aerated. Soft tissues: Unremarkable. IMPRESSION: No acute intracranial abnormality. Electronically signed by: Palomo Guadalupe On 08/09/2019 19:38:58 PM
[2019-08-09 20:40] VITALS: BP 110/60
[2019-08-09] MEDS ORDERED: KETO10TAB PO (20:43)
[2019-08-09] MEDS ORDERED: MECL-68 PO (20:43)
[2019-08-09] MEDS ORDERED: REGL10TA6 PO (20:43)
[2019-08-13 00:10] LABS: EBV AB TO NUCLEAR ANTIGEN 80.9 U/mL (0.0-17.9); EBV VIRAL CAPSID AG IgM <36.0 U/mL (0.0-35.9); Lyme Disease IgG Ab 18 kDa Ban Present (.); Lyme Disease IgG Ab 23 kDa Ban Absent (.); Lyme Disease IgG Ab 28 kDa Ban Absent (.); Lyme Disease IgG Ab 30 kDa Ban Absent (.); Lyme Disease IgG Ab 39 kDa Ban Present (.); Lyme Disease IgG Ab 41 kDa Ban Absent (.); Lyme Disease IgG Ab 45 kDa Ban Absent (.); Lyme Disease IgG Ab 58 kDa Ban Absent (.); Lyme Disease IgG Ab 66 kDa Ban Absent (.); Lyme Disease IgG Ab 93 kDa Ban Absent (.); Lyme Disease IgG West Blot Int Negative (.); Lyme Disease IgG/IgM Antibodie 1.43 ISR (0.00-0.90); Lyme Disease IgM Ab 23 kDa Ban Present (.); Lyme Disease IgM Ab 39 kDa Ban Absent (.); Lyme Disease IgM Ab 41 kDa Ban Absent (.); Lyme Disease IgM Ab Quantitati <0.80 index (0.00-0.79); Lyme Disease IgM West Blot Int Negative (.)
== END 2019-08-09 20:56 | disposition home or self-care (01) ==
LOC: M ED 16:44
DX: R51 Headache (principal); M25.552 Pain in left hip; M25.512 Pain in left shoulder; Z79.899 Other long term (current) drug therapy; F17.210 Nicotine dependence, cigarettes, uncomplicated
CPT/HCPCS: 36415; 70450; 80047; 84702; 85025; 86308; 86617; 86663; 86664; 86665; 96361; 96374; 96375; 99284; J1200; J1885; J2765

== ENCOUNTER 2019-08-18 13:30 | Outpatient (RCR) | payer MEDICAID ==
[~2019-08-18 13:30] MED LIST changes: +DULO1CAP6; +MECL-68 PO
== END 2019-08-21 ==
LOC: M OUTALCOH 13:30
PROVIDERS: ATTEND Psychiatry & Neurology Psychiatry
DX: F10.10 Alcohol abuse, uncomplicated (principal)

== ENCOUNTER → 2019-08-23 | Outpatient (REF) | payer MEDICAID, OTHER ==
[2019-08-23 12:08] LABS: APPEARANCE, URINE TURBID (CLEAR); BACTERIA, URINE AUTO 1+ (NEGATIVE); BILIRUBIN, URINE AUTO NEGATIVE (NEGATIVE); BLOOD, URINE BLOOD 2+ (NEGATIVE); COLOR, URINE YELLOW (YELLOW); GLUCOSE, URINE (UA) AUTO NEGATIVE (NEGATIVE); KETONE, URINE AUTO NEGATIVE (NEGATIVE); LEUKOCYTE ESTERASE, URINE AUTO 3+ (NEGATIVE); NITRITE, URINE AUTO NEGATIVE (NEGATIVE); PROTEIN, URINE AUTO 3+ mg/dL (NEGATIVE); RBC, URINE AUTO TNTC /HPF (0-3); RENAL EPITHELIAL CELLS 1 /HPF; SPECIFIC GRAVITY URINE AUTO 1.023 (1.002-1.035); SQUAMOUS EPITHELIAL CELL UR AU 2 /HPF (0-6); UROBILINOGEN, URINE AUTO 0.2 mg/dL (0.0-2.0); WBC, URINE AUTO TNTC /HPF (0-3)
== END ==
LOC: M SFHCPLAZ 11:48
PROVIDERS: ATTEND Nurse Practitioner Family
DX: N39.0 Urinary tract infection, site not specified (principal)

== ENCOUNTER 2019-09-01 13:00 | Outpatient (RCR) | payer MEDICAID | END 2019-09-21 | LOC: M OUTALCOH 13:00 | PROVIDERS: ATTEND Psychiatry & Neurology Psychiatry | DX: F10.10 Alcohol abuse, uncomplicated (principal) ==

== ENCOUNTER → 2019-09-21 | Outpatient (REF) | payer MEDICAID ==
[2019-09-21 19:01] LABS: CHLAMYDIA DNA AMPLIFICATION NEGATIVE (NEGATIVE); GC DNA AMPLIFICATION NEGATIVE (NEGATIVE)
== END ==
LOC: M LAB REF 16:52
PROVIDERS: ATTEND Advanced Practice Midwife
DX: Z11.3 Encounter for screening for infections with a predominantly sexual mode of transmission (principal)

== ENCOUNTER → 2019-10-08 | Outpatient (REF) | payer MEDICAID | LOC: M LAB REF 13:51 | PROVIDERS: ATTEND Nurse Practitioner Family | DX: J02.9 Acute pharyngitis, unspecified (principal) ==

== ENCOUNTER → 2019-12-15 | Outpatient (CLI) | payer MEDICAID ==
[~2019-12-15] MED LIST changes: -MECL-68 PO; +MECL1TAB31 PO
== END ==
LOC: M OUTALCOH 12:18
PROVIDERS: ATTEND Psychiatry & Neurology Addiction Medicine
DX: F10.10 Alcohol abuse, uncomplicated (principal)

== ENCOUNTER → 2019-12-22 | Outpatient (REF) | payer MEDICAID | LOC: M LAB REF 17:23 | PROVIDERS: ATTEND Physician Assistant Medical | DX: R50.9 Fever, unspecified (principal) ==

== ENCOUNTER 2020-01-03 11:32 | Outpatient (RCR) | payer MEDICAID | END 2020-01-20 | LOC: M OUTALCOH 11:32 | PROVIDERS: ATTEND Psychiatry & Neurology Addiction Medicine | DX: F10.10 Alcohol abuse, uncomplicated (principal) ==

== ENCOUNTER 2020-02-19 13:00 | Outpatient (RCR) | payer MEDICAID | END 2020-02-20 | LOC: M OUTALCOH 13:00 | PROVIDERS: ATTEND Psychiatry & Neurology Addiction Medicine | DX: F10.10 Alcohol abuse, uncomplicated (principal) ==

== ENCOUNTER 2020-03-18 13:00 | Outpatient (RCR) | payer MEDICAID | END 2020-03-21 | LOC: M OUTALCOH 13:00 | PROVIDERS: ATTEND Psychiatry & Neurology Addiction Medicine | DX: F10.10 Alcohol abuse, uncomplicated (principal) ==

== ENCOUNTER 2020-04-09 13:00 | Outpatient (RCR) | payer MEDICAID | END 2020-04-21 | LOC: M OUTALCOH 13:00 | PROVIDERS: ATTEND Psychiatry & Neurology Addiction Medicine | DX: F10.10 Alcohol abuse, uncomplicated (principal) ==

== ENCOUNTER → 2020-05-21 | Outpatient (RCR) | payer MEDICAID | LOC: M OUTALCOH 04-23 12:21 | PROVIDERS: ATTEND Counselor Addiction (Substance Use Disorder) | DX: F10.10 Alcohol abuse, uncomplicated (principal) ==

== ENCOUNTER 2020-06-11 13:00 | Outpatient (RCR) | payer MEDICAID | END 2020-06-21 | LOC: M OUTALCOH 13:00 | PROVIDERS: ATTEND Psychiatry & Neurology Addiction Medicine | DX: F10.10 Alcohol abuse, uncomplicated (principal) ==

== ENCOUNTER 2020-07-16 14:00 | Outpatient (RCR) | payer MEDICAID | END 2020-07-22 | LOC: M OUTALCOH 14:00 | PROVIDERS: ATTEND Psychiatry & Neurology Addiction Medicine | DX: F10.10 Alcohol abuse, uncomplicated (principal) ==

== ENCOUNTER 2020-08-19 10:00 | Outpatient (RCR) | payer MEDICAID | END 2020-08-21 | LOC: M OUTALCOH 10:00 | PROVIDERS: ATTEND Psychiatry & Neurology Addiction Medicine | DX: F10.10 Alcohol abuse, uncomplicated (principal) ==

== ENCOUNTER 2020-09-02 14:58 | Outpatient (RCR) | payer MEDICAID | END 2020-09-21 | LOC: M OUTALCOH 14:58 | PROVIDERS: ATTEND Psychiatry & Neurology Addiction Medicine | DX: F10.10 Alcohol abuse, uncomplicated (principal) ==

== ENCOUNTER 2020-10-11 14:16 | Outpatient (RCR) | payer MEDICAID | END 2020-10-21 | LOC: M OUTALCOH 14:16 | PROVIDERS: ATTEND Psychiatry & Neurology Addiction Medicine | DX: F10.10 Alcohol abuse, uncomplicated (principal); F17.200 Nicotine dependence, unspecified, uncomplicated ==

== ENCOUNTER → 2020-11-07 | Outpatient (REF) | payer OTHER | LOC: M SFHCWAGY 13:44 | PROVIDERS: ATTEND Nurse Practitioner Women's Health | DX: Z12.4 Encounter for screening for malignant neoplasm of cervix (principal) ==

== ENCOUNTER → 2020-11-12 | Outpatient (REF) | payer OTHER | LOC: M SFHCWAGY 12:37 | PROVIDERS: ATTEND Nurse Practitioner Women's Health | DX: N93.9 Abnormal uterine and vaginal bleeding, unspecified (principal); Z11.3 Encounter for screening for infections with a predominantly sexual mode of transmission ==

== ENCOUNTER 2020-11-18 10:00 | Outpatient (RCR) | payer MEDICAID | END 2020-11-21 | LOC: M OUTALCOH 10:00 | PROVIDERS: ATTEND Psychiatry & Neurology Addiction Medicine | DX: F10.10 Alcohol abuse, uncomplicated (principal); F17.200 Nicotine dependence, unspecified, uncomplicated ==

== ENCOUNTER 2020-12-12 10:00 | Outpatient (RCR) | payer MEDICAID ==
[~2020-12-12 10:00] MED LIST changes: +GABA-282 PO; -GABA-843 PO
== END 2020-12-22 ==
LOC: M OUTALCOH 10:00
PROVIDERS: ATTEND Psychiatry & Neurology Addiction Medicine
DX: F10.10 Alcohol abuse, uncomplicated (principal); F17.200 Nicotine dependence, unspecified, uncomplicated

== ENCOUNTER → 2021-01-02 | Outpatient (REF) | payer MEDICAID, OTHER ==
[2021-01-02 20:11] LABS: CHLAMYDIA DNA AMPLIFICATION NEGATIVE (NEGATIVE); GC DNA AMPLIFICATION NEGATIVE (NEGATIVE)
== END ==
LOC: M SFHCWAGY 16:44
PROVIDERS: ATTEND Nurse Practitioner Women's Health
DX: Z11.3 Encounter for screening for infections with a predominantly sexual mode of transmission (principal)

== ENCOUNTER 2021-01-16 14:47 | Outpatient (RCR) | payer MEDICAID | END 2021-01-19 | LOC: M OUTALCOH 14:47 | PROVIDERS: ATTEND Psychiatry & Neurology Psychiatry | DX: F10.10 Alcohol abuse, uncomplicated (principal); F17.200 Nicotine dependence, unspecified, uncomplicated ==

== ENCOUNTER → 2021-01-29 | Outpatient (CLI) | payer OTHER ==
[2021-01-29 14:05] LABS: BASO # 0.1 10^3/uL (0.0-0.2); BASO % 0.8 % (0.0-1.0); EOS # 0.1 10^3/uL (0.0-0.5); EOS % 0.9 % (0.0-3.0); HEMATOCRIT 41.9 % (36.0-47.0); HEMOGLOBIN 13.4 g/dl (12.0-15.5); LYMPH # 2.3 10^3/uL (1.5-5.0); LYMPH % 28.7 % (24.0-44.0); MEAN CORPUSCULAR HEMOGLOBIN 29.9 pg (27.0-33.0); MEAN CORPUSCULAR VOLUME 93.5 fl (80.0-96.0); MONO # 0.7 10^3/uL (0.0-0.8); MONO % 8.8 % (2.0-8.0); NEUTROPHILS # 4.8 10^3/uL (1.5-8.5); NEUTROPHILS % 60.4 % (36.0-66.0); PLATELET COUNT, AUTOMATED 221 10^3/uL (150-450); RED BLOOD COUNT 4.48 10^6/uL (4.00-5.40); WHITE BLOOD COUNT 7.9 10^3/uL (4.0-10.0)
[2021-01-29 14:34] LABS: ALBUMIN 4.4 GM/DL (3.2-5.2); ALT/SGPT 18 U/L (12-78); BILIRUBIN,TOTAL 0.3 MG/DL (0.2-1.0); BLOOD UREA NITROGEN 10 MG/DL (7-18); CALCIUM LEVEL 9.3 MG/DL (8.5-10.1); CARBON DIOXIDE LEVEL 25 MEQ/L (21-32); CHLORIDE LEVEL 108 MEQ/L (98-107); FREE T4 1.09 NG/DL (0.76-1.46); GLOMERULAR FILTRATION RATE > 60.0 (>60); GLUCOSE, FASTING 77 MG/DL (70-100); POTASSIUM SERUM 3.6 MEQ/L (3.5-5.1); SODIUM LEVEL 141 MEQ/L (136-145); THYROID STIMULATING HORMONE 0.874 uIU/ML (0.358-3.740); TOTAL PROTEIN 7.4 GM/DL (6.4-8.2)
== END ==
LOC: M LAB 12:47
PROVIDERS: ATTEND Nurse Practitioner Family
DX: K58.2 Mixed irritable bowel syndrome (principal); Z13.228 Encounter for screening for other metabolic disorders

== ENCOUNTER → 2021-01-29 | Outpatient (CLI) | payer OTHER ==
[2021-01-29 14:01] LABS: BASO % 0.5 % (0.0-1.0); EOS # 0.1 10^3/uL (0.0-0.5); HEMATOCRIT 40.9 % (36.0-47.0); HEMOGLOBIN 13.1 g/dl (12.0-15.5); LYMPH # 2.3 10^3/uL (1.5-5.0); LYMPH % 28.9 % (24.0-44.0); MEAN CORPUSCULAR HEMOGLOBIN 30.2 pg (27.0-33.0); MEAN CORPUSCULAR VOLUME 94.2 fl (80.0-96.0); MONO # 0.7 10^3/uL (0.0-0.8); MONO % 8.8 % (2.0-8.0); NEUTROPHILS # 4.7 10^3/uL (1.5-8.5); NEUTROPHILS % 60.7 % (36.0-66.0); PLATELET COUNT, AUTOMATED 219 10^3/uL (150-450); RED BLOOD COUNT 4.34 10^6/uL (4.00-5.40); WHITE BLOOD COUNT 7.8 10^3/uL (4.0-10.0)
[2021-01-29 14:25] LABS: ALBUMIN 4.3 GM/DL (3.2-5.2); ALT/SGPT 20 U/L (12-78); BILIRUBIN,DIRECT < 0.1 MG/DL (0.0-0.2); BILIRUBIN,TOTAL 0.2 MG/DL (0.2-1.0); BLOOD UREA NITROGEN 9 MG/DL (7-18); CREATININE FOR GFR 0.67 MG/DL (0.55-1.30); FOLATE 13.3 NG/ML; GLOMERULAR FILTRATION RATE > 60.0 (>60); IRON (FE) 84 UG/DL (50-170); PERCENT SATURATION 27.8 % (13.2-45.0); TOTAL IRON BINDING CAPACITY 302 UG/DL (250-450); TOTAL PROTEIN 7.1 GM/DL (6.4-8.2); VITAMIN B12 LEVEL 747 PG/ML
[2021-01-29 14:29] LABS: H PYLORI QUALITATIVE IgG NEGATIVE (NEGATIVE)
[2021-01-31 06:07] LABS: IgA SERUM (part of Subclasses) 214 mg/dL (87-352); TISSUE TRANSGLUTAMINASE IgA <2 U/mL (0-3)
== END ==
LOC: M LAB 12:43
PROVIDERS: ATTEND Internal Medicine Gastroenterology
DX: K58.2 Mixed irritable bowel syndrome (principal); R10.13 Epigastric pain

== ENCOUNTER 2021-02-10 23:58 | Emergency (ER) | payer MEDICAID, OTHER ==
[~2021-02-10] VITALS: Ht 160 cm; Wt 58.1 kg
[2021-02-11] MEDS ORDERED: MIRA3350 (00:06)
[2021-02-11] MEDS ORDERED: DOK1CAP7 (00:06)
[2021-02-11] MEDS ORDERED: METOCLOPRAMIDE 10 MG TAB PO ONE (01:35)
[2021-02-11] MEDS ORDERED: SIMETHICONE 80MG CHEW TAB PO ONE (01:35)
[2021-02-11] MEDS ORDERED: SIME180C PO (01:38)
[2021-02-11] MEDS ORDERED: REGL10TA6 PO (01:38)
[2021-02-11 01:49] VITALS: BP 121/58
== END 2021-02-11 01:50 | disposition home or self-care (01) ==
LOC: M ED 23:58
DX: R10.9 Unspecified abdominal pain (principal); K58.9 Irritable bowel syndrome, unspecified

== ENCOUNTER 2021-03-04 15:48 | Outpatient (RCR) | payer MEDICAID ==
[~2021-03-04 15:48] MED LIST changes: +DOK1CAP7; +MIRA3350; +SIME180C25 PO
== END 2021-03-21 ==
LOC: M OUTALCOH 15:48
PROVIDERS: ATTEND Psychiatry & Neurology Psychiatry
DX: F10.10 Alcohol abuse, uncomplicated (principal); F17.200 Nicotine dependence, unspecified, uncomplicated

== ENCOUNTER → 2021-03-11 | Outpatient (CLI) | payer OTHER ==
[~2021-03-11] MED LIST changes: +E-Z-GAS II EFFERVESCENT PACKET (SODIUM BICARB./CITRIC ACID/SIMETHICONE) As Ordered ONE; +E-Z-HD 98% w/w 340GM SUSP BTL As Ordered ONE; +E-Z-PAQUE 96% w/w SUSP 176GM BTL As Ordered ONE
--- NOTE | 2021-03-11 10:23 | REP ---
INDICATION: ABD DISTENTION MIXED IBS COMPARISON: 01/28/2011 TECHNIQUE: Real time quiroz scale ultrasound examination using curved array transducer. FINDINGS: Liver and pancreas are normal in contour, size, and echogenicity without focal hepatic lesions identified. The gallbladder is normal and without gallstones, wall thickening, or pericholecystic fluid. No biliary ductal dilatation is appreciated and the common bile duct measures 2.0 mm diameter. Right kidney is normal in reniform shape without hydronephrosis and measures 11.2 x 5.3 x 4.1 cm. No ascites in the visualized right upper quadrant. IMPRESSION: Normal limited right upper quadrant ultrasound <Electronically signed by Sánchez Perry > 03/11/21 1019
--- NOTE | 2021-03-11 16:40 | REP ---
INDICATION: ABD DISTENTION MIXED IBS. COMPARISON: None. TECHNIQUE: The procedure was performed under the direct supervision of Dr. Luong. The images were reviewed with Dr. Luong. Liquid barium and gas producing crystals were given in the erect position as well as liquid barium in the prone oblique position in order to perform a double contrast upper GI examination. Additionally liquid barium was given at the end of the examination in order to perform a small bowel follow through. 1.6 minutes of fluoro time was utilized for this procedure. FINDINGS: The sales representative metals film shows no organomegaly or pathological masses. The intestinal gas pattern is non-specific. There are surgical clips noted in the pelvis. The oral and pharyngeal stages of deglutition are unremarkable. Esophageal transport is prompt and efficient and there is no esophagitis, stricture, mucosal ring or hiatal hernia. There is gastroesophageal reflux demonstrated to above the level of the viyda. The stomach mcdaniels are normally outlined. The rugal folds are smooth and regular. There is no gastritis neoplasm or ulcer disease. The duodenal mcdaniels are normally outlined . The mucosal folds are smooth and regular. There is no duodenitis pancreatitis peptic ulcer disease or neoplasm. The visualized portion of the proximal small bowel appears normal in course and caliber. The barium column was followed through the small bowel to the level of the terminal ileum. Small bowel transit time is approximately . During fluoroscopy gentle palpation shows all loops are freely movable and pliable. There are no fixed or angulated loops. The small bowel mucosal pattern is normal in course and caliber. There is no transition to suggest a partial small-bowel obstruction. Spot filming of the terminal ileum shows it to be unremarkable. IMPRESSION: There is gastroesophageal reflux demonstrated to above the level of the vidya. Otherwise, unremarkable double contrast upper GI and small bowel follow through examination. <Electronically signed by Tom Wyatt > 03/11/21 3100 <Electronically signed by David Luong > 03/11/21 0779
== END ==
LOC: M RAD 09:46
PROVIDERS: ATTEND Internal Medicine Gastroenterology
DX: K58.2 Mixed irritable bowel syndrome (principal)

== ENCOUNTER 2021-04-07 13:09 | Outpatient (RCR) | payer MEDICAID ==
[~2021-04-07 13:09] MED LIST changes: -E-Z-GAS II EFFERVESCENT PACKET (SODIUM BICARB./CITRIC ACID/SIMETHICONE) As Ordered ONE; -E-Z-HD 98% w/w 340GM SUSP BTL As Ordered ONE; -E-Z-PAQUE 96% w/w SUSP 176GM BTL As Ordered ONE
== END 2021-04-21 ==
LOC: M OUTALCOH 13:09
PROVIDERS: ATTEND Psychiatry & Neurology Psychiatry
DX: F10.10 Alcohol abuse, uncomplicated (principal); F17.200 Nicotine dependence, unspecified, uncomplicated

== ENCOUNTER → 2021-05-02 | Outpatient (CLI) | payer MEDICAID, OTHER ==
[2021-05-02 15:04] LABS: CHOLESTEROL RISK RATIO 2.145 (<5)
[2021-05-02 15:17] LABS: HEMOGLOBIN A1c 5.3 %
== END ==
LOC: M PLALAB 10:30
PROVIDERS: ATTEND Student in an Organized Health Care Education/Training Program
DX: F33.1 Major depressive disorder, recurrent, moderate (principal); F40.10 Social phobia, unspecified; F41.1 Generalized anxiety disorder

== ENCOUNTER → 2021-10-03 | Outpatient (CLI) | payer MEDICAID, OTHER ==
[~2021-10-03] MED LIST changes: +BUSP10TA PO; +DOK1CAP4; -DOK1CAP7; +MEDICAL MARIJUANNA; +PRAZ1CAP PO; +SERT-141 PO; +TRAZ-189 PO
== END ==
LOC: M LABSMTC 11:06
PROVIDERS: ATTEND Anesthesiology
DX: Z01.818 Encounter for other preprocedural examination (principal); Z11.52 Encounter for screening for COVID-19

== ENCOUNTER 2021-10-08 08:29 | Day surgery (SDC) | payer OTHER ==
[~2021-10-08] VITALS: Ht 160 cm; Wt 59.1 kg
[~2021-10-08 08:29] MED LIST changes: +LIDOCAINE 2% 100MG/5ML SDV (FOR ANES.) As Ordered ONE; +LIDOCAINE 2% INJ 100 MG/5 ML SYRINGE As Ordered ONE; +LR 1,000 ML IV ONE; +ONDANSETRON 4MG/2ML VIAL As Ordered ONE; +ROCURONIUM BROMIDE 50 MG/5 ML VIAL As Ordered ONE; +SUGAMMADEX SODIUM 500 MG/5 ML VIAL (BRIDION) As Ordered ONE; +ceFAZolin SOD 2 GM in IV 1 EA IV ONE; +dexameTHASONE 4 MG/ML 1ML VIAL (J1100 PER 1MG) As Ordered ONE; +propofoL 200 MG/20 ML VIAL As Ordered ONE
--- OUTSIDE RECORDS SUMMARY | 2021-10-08 08:33 | CCD | Continuity of Care Document ---
Author Author Elsy MACARIO QUARRY WORKER Organization Unknown Address [address] [place] [address] Phone [phone] Care Team Providers Care Set Up Machinist Name Role Phone [facility] [employer] [phone] Problems Description No Information Available Social History Type Date Description Comments Sex Unknown ETOH Use Rarely consumes alcohol Recreational Drug Use Denies Drug Use Tobacco Use Start: Unknown End: Unknown Patient is a former smoker Allergies, Adverse Reactions, Alerts Active Allergies Criticality Reaction | Severity Comments Date NKDA Unable to assess criticality 09/22/2017 NKFA Unable to assess criticality 09/22/2017 NKEA Unable to assess criticality 09/22/2017 Medications Active Medications SIG Qnty Indications Ordering Provide r Date Sertraline HCL 100mg Tablets Take One And One Half Tablets By Mouth Every Day Unknown Buspirone HCL 10mg Tablets Take Two Tablets By Mouth Twice A Day Unknown Trazodone HCL 100mg Tablets Take One Tablet By Mouth Every Evening as Needed Unknown Prazosin HCL 1mg Capsules Take One Capsule By Mouth AT Bedtime With Prazosin 2MG Capsule Un known Prazosin HCL 2mg Capsules Take One Capsule By Mouth Every Day AT Bedtime For Nightmares Unk nown Medications Administered in Office Medication SIG Qnty Indications Ordering Provider Date medroxyPROGESTERone Acet. SDV 150MG/ML Injection Nurse - Obgyn 05/29/2019 medroxyPROGESTERone Acet. SDV 150MG/ML Injection Zuri Allen M.D. medroxyPROGESTERone Acet. SDV 150MG/ML Injection Nurse - Obgyn 12/08/2018 medroxyPROGESTERone Acet. SDV 150MG/ML Injection Nurse - Obgyn 09/13/2018 medroxyPROGESTERone Acet. SDV 150MG/ML Injection Grisel Rascon, BAR 06/20/2018 medroxyPROGESTERone Acet. SDV 150MG/ML Injection Zuri Allen M.D. medroxyPROGESTERone Acet. SDV 150MG/ML Injection Nurse - Obgyn 01/06/2018 medroxyPROGESTERone Acet. SDV 150MG/ML Injection Jaqueline Clayton M.D. 10/15 Immunizations Description No Information Available Vital Signs Date Vital Result Comment 08/30/2021 1:03pm BP Systolic 112 mmHg BP Diastolic 76 mmHg Heart Rate 70 /min Body Temperature 97.2 F O2 % BldC Oximetry 98 % 05/29/2019 4:19pm BP Systolic 112 mmHg BP Diastolic 72 mmHg Heart Rate 76 /min Weight 115.00 lb Weight 52.164 kg Height 64 inches 5'4" BMI (Body Mass Index) 19.7 kg/m2 BSA (Body Surface Area) 1.55 m2 Results Description No Information Available Procedures Description No Information Available Medical Devices Description No Information Available Encounters Description No Information Available Assessments Description No Information Available Plan of Treatment No Information Available Functional Status Description No Information Available Mental Status Description No Information Available Referrals Description No Information Available
--- OUTSIDE RECORDS SUMMARY | 2021-10-08 08:33 | CCD ---
Author Author [facility] Organization [facility] Address Unknown Phone Unavailable Care Team Providers Care Credit And Loan Collections Supervisor Name Role Phone Hill Clifford Unavailable PROBLEMS Type Condition ICD9-CM Code [id number] Code Onset Dates Condition S tatus W/U Status Risk SNOMED Code Notes Problem Bulging lumbar disc M51.26 Active confirmed 646782684 Problem Mixed irritable bowel syndrome K58.2 Active confir med 42348024 Problem Endometriosis of uterus N80.0 Active confirmed 64089718 Problem Migraine G43.909 Active confirmed 69880181 Problem Endometriosis determined by laparoscopy N80.9 Active confirmed 636841294 Problem Endometriosis N80.9 Active confirmed 002275 003 Problem Abnormal uterine bleeding (AUB) N93.9 Active confirmed [id number] ALLERGIES Allergen (clinical drug ingredient) Drug/Non Drug Allergy do cumented on EMR Reaction Allergy Type Onset Date Status Latex latex red, itchy, and swollen Non Drug Allergy Active ENCOUNTERS from 1994 to 2021-08-18 Encounter Location Date Provider Diagnosis [facility] [address] [place] [address] [place] [address] Jul, Clifford Alejandre IMMUNIZATIONS Vaccine Route Administration Date Status Depo-Provera 150mg/1mL Medroxy-Progestrone Acetate IM Intram uscular March 25, 2021 Administered Depo-Provera 150mg/1mL Medroxy-Progestrone Acetate IM Intram uscular Jan 02, 2021 Administered Depo-Provera 150mg/1mL Medroxy-Progestrone Acetate IM Intram uscular Oct 08, 2020 Administered Depo-Provera 150mg/1mL Medroxy-Progestrone Acetate IM Intram uscular January 29, 2020 Administered TDAP Unknown April 24, 2015 Administered SOCIAL HISTORY Tobacco Use: Social History Observation Description Date Details (start date - stop date) Former Smoker Sex Assigned At : Social History Observation Description Sex Assigned At Unknown Alcohol Screening: Question Answer Notes Did you have a drink containing alcohol in the past year? No Points 0 Interpretation Negative Tobacco Use: Question Answer Notes Are you a: former smoker How long has it been since you last smoked? 6-12 months REASON FOR REFERRAL No Information VITAL SIGNS No information MEDICATIONS Medication SIG (Take, Route, Frequency, Duration) Notes Start Da te End Date Status Prazosin HCl 1 MG 1 capsule at bedtime Orally Once a day Active busPIRone HCl 10 MG 2 tablet Orally Twice a day Active Depo-Provera 150 MG/ML 1 ml Intramuscular for 30 day(s) Not-Taking Zoloft 100 MG 1 tablet Orally Once a day for 30 day(s) Active Orilissa 150 MG 1 tablet Orally Once a day for 30 day(s) 1 Apr, Not-Taking Prazosin HCl 2 MG 1 capsule at bedtime Orally Once a day Active Remeron 15 MG 1 tablet at bedtime Orally Once a day Not-Taking traZODone HCl 100 MG 1 tablet at bedtime Orally Once a day for 30 day (s) Active PROCEDURES No Information RESULTS No Results REASON FOR VISIT 10/08/21 SURG AUTH MEDICAL (GENERAL) HISTORY Type Description Date Medical History Disc bulge L4-5 - 06/2015 [facility] [place] Medical History Endometriosis - [facility] Medical History lactose intolerance Medical History depression Medical History anxiety Surgical History Ectopic 07/2012 Surgical History Endoscopy & Colonoscopy Dr. inocencia Polanco i, [facility] 01/2010 Surgical History GI studies dr. Becerra. 2010 Surgical History CYSTOSCOPY 12/05 Surgical History DENTAL SURGERY 03/05 Surgical History Gastro 09/2019 Hospitalization History surgery related Hospitalization History Pain control 10/2013 Goals Section No Information Health Concerns No Information MEDICAL EQUIPMENT No Information MENTAL STATUS No Information FUNCTIONAL STATUS No Information ASSESSMENTS No Information PLAN OF TREATMENT Next Appt Details Provider Name:Clifford Alejandre 2021-10-08 10:00:00 AM, [address] [place] [address] , [place], [address], Provider Name:Clifford Champagne [place], 2021-10-24 01:30:00 PM, [address] [facility], , [place], [address], Insurance Providers Payer Name Payer Address Payer Phone Insured Name Patient Relati onship to Insured Coverage Start Date Coverage End Date [facility] [address] [facility] [id number] ALENA VELÁSQUEZ self
--- OUTSIDE RECORDS SUMMARY | 2021-10-08 08:33 | CCD ---
Author Author [facility] Organization [facility] Address Unknown Phone Unavailable Care Team Providers Care Automotive Parts Interpreter Name Role Phone Clifford Alejandre Unavailable PROBLEMS Type Condition ICD9-CM Code [id number] Code Onset Dates Condition S tatus W/U Status Risk SNOMED Code Notes Problem Bulging lumbar disc M51.26 Active confirmed 637416393 Problem Mixed irritable bowel syndrome K58.2 Active confir med 13590777 Problem Endometriosis of uterus N80.0 Active confirmed 52454270 Problem Migraine G43.909 Active confirmed 17828365 Problem Endometriosis determined by laparoscopy N80.9 Active confirmed 677666135 Problem Endometriosis N80.9 Active confirmed 820512 003 Problem Abnormal uterine bleeding (AUB) N93.9 Active confirmed [id number] ALLERGIES Allergen (clinical drug ingredient) Drug/Non Drug Allergy do cumented on EMR Reaction Allergy Type Onset Date Status Latex latex red, itchy, and swollen Non Drug Allergy Active ENCOUNTERS from 1994 to 2021-07-24 Encounter Location Date Provider Diagnosis [facility] [address] [place] [address] [place] [address] Jun, Clifford Hill Pelvic pain R10.2 an d Endometriosis of uterus N80.0 IMMUNIZATIONS Vaccine Route Administration Date Status Depo-Provera [...] REASON FOR REFERRAL No Information VITAL SIGNS Weight 120.4 lbs Jun, Height 64 in Jun, BMI 20.66 kg/m2 Jun, Blood pressure systolic 104 mm Hg Jun, Blood pressure diastolic 64 mm Hg Jun, MEDICATIONS Medication SIG (Take, Route, Frequency, Duration) [...] Information RESULTS No Results REASON FOR VISIT CONSENT SURGERY MEDICAL (GENERAL) HISTORY Type Description Date Medical History Disc bulge L4-5 - 06/2015 [facility] [place] Medical History [facility] - [facility] Medical History lactose intolerance Medical History depression Medical History anxiety Surgical History Ectopic 07/2012 Surgical History Endoscopy & Colonoscopy Dr. inocencia Polanco i, [facility] 01/2010 Surgical History GI studies dr. Becerra. 2010 Surgical History CYSTOSCOPY 12/05 Surgical History DENTAL SURGERY 03/05 Surgical History Gastro 09/2019 Hospitalization History surgery related Hospitalization History Pain control 10/2013 Goals Section No Information Health Concerns No Information MEDICAL EQUIPMENT No Information MENTAL STATUS No Information FUNCTIONAL STATUS No Information ASSESSMENTS Encounter Date Diagnosis Assessment Notes Treatment Notes Treatm ent Clinical Notes Jun, Pelvic pain (ICD-10 - R10.2) Jun, Endometriosis of uterus (ICD-10 - N80.0) PLAN OF TREATMENT No Information Insurance Providers Payer Name Payer Address Payer Phone Insured Name Patient Relati onship to Insured Coverage Start Date Coverage End Date [facility] [address] [facility] [phone] ALENA VELÁSQUEZ self
--- OUTSIDE RECORDS SUMMARY | 2021-10-08 08:33 | CCD ---
Author Author [facility] Organization [facility] Address Unknown Phone Unavailable Care Team Providers Care Construction Equipment Overhauler Name Role Phone Hill Clifford Unavailable PROBLEMS Type Condition ICD9-CM Code [id number] Code Onset Dates Condition S tatus W/U Status Risk SNOMED Code Notes Problem Bulging lumbar disc M51.26 Active confirmed 615944347 Problem Mixed irritable bowel syndrome K58.2 Active confir med 41963242 Problem Endometriosis of uterus N80.0 Active confirmed 04875797 Problem Migraine G43.909 Active confirmed 98014702 Problem Endometriosis determined by laparoscopy N80.9 Active confirmed 270952642 Problem Endometriosis N80.9 Active confirmed 579281 003 Problem Abnormal uterine bleeding (AUB) N93.9 Active confirmed [id number] ALLERGIES Allergen (clinical drug ingredient) Drug/Non Drug Allergy do cumented on EMR Reaction Allergy Type Onset Date Status Latex latex red, itchy, and swollen Non Drug Allergy Active ENCOUNTERS from 1994 to 2021-08-21 Encounter Location Date Provider Diagnosis [facility] [address] [place] [address] [place] [address] Jul, Clifford Alejandre IMMUNIZATIONS Vaccine Route Administration [...] Information RESULTS No Results REASON FOR VISIT No Information MEDICAL (GENERAL) HISTORY Type Description Date Medical History Disc bulge L4-5 - 06/2015 MRI spine - pain [facility] [place] Medical History [facility]ometriosis - [facility] Medical History lactose intolerance Medical History depression Medical History anxiety Surgical History Ectopic 07/2012 Surgical History Endoscopy & Colonoscopy Dr. inocencia Polanco i, [facility] 01/[address] studies [address] [...] Details Provider Name:Clifford Alejandre 2021-10-08 10:00:00 AM, [facility] [facility] [phone], [place], [address], Provider Name:Clifford Champagne Hill, 2021-10-24 01:30:00 PM, [address] [facility], , [place], [address], Insurance Providers Payer Name Payer Address Payer Phone Insured Name Patient Relati onship to Insured Coverage Start Date Coverage End Date [facility] [address] [facility] [phone] ALENA VELÁSQUEZ self
--- OUTSIDE RECORDS SUMMARY | 2021-10-08 08:34 | CCD ---
Author Author [facility] Organization [facility] Address Unknown Phone Unavailable Care Team Providers [employer] Teacher Name Role Phone Ivelisse, D Gary SHOWROOM SALESPERSON Unavailable Unavailable Ivelisse, D Gary SHOWROOM SALESPERSON Unavailable Unavailable Ivelisse, D Gary SHOWROOM SALESPERSON Unavailable Unavailable Ivelisse, D Gary SHOWROOM SALESPERSON Unavailable Unavailable Ivelisse, D Gary SHOWROOM SALESPERSON Unavailable Unavailable Ivelisse, D Gary SHOWROOM SALESPERSON Unavailable Unavailable Ivelisse, D Gary SHOWROOM SALESPERSON Unavailable Unavailable Ivelisse, D Gary SHOWROOM SALESPERSON Unavailable Unavailable Ivelisse, D Gary SHOWROOM SALESPERSON Unavailable Unavailable Ivelisse, D Gary SHOWROOM SALESPERSON Unavailable Unavailable Ivelisse, D Gary SHOWROOM SALESPERSON Unavailable Unavailable Ivelisse, D Gary SHOWROOM SALESPERSON Unavailable Unavailable Ivelisse, D Gary SHOWROOM SALESPERSON Unavailable Unavailable Ivelisse, D Agry SHOWROOM SALESPERSON Unavailable Unavailable Ivelisse, D Gary SHOWROOM SALESPERSON Unavailable Unavailable Ivelisse, D Gary SHOWROOM SALESPERSON Unavailable Unavailable Ivelisse, D Gary SHOWROOM SALESPERSON Unavailable Unavailable Ivelisse, D Gary SHOWROOM SALESPERSON Unavailable Unavailable Ivelisse, D Gary SHOWROOM SALESPERSON Unavailable Unavailable Ivelisse, D Gary SHOWROOM SALESPERSON Unavailable Unavailable Ivelisse, D Gary SHOWROOM SALESPERSON Unavailable Unavailable Ivelisse, D Gary SHOWROOM SALESPERSON Unavailable Unavailable Ivelisse, D Gary SHOWROOM SALESPERSON Unavailable Unavailable Ivelisse, D Gary SHOWROOM SALESPERSON Unavailable Unavailable Ivelisse, D Gary SHOWROOM SALESPERSON Unavailable Unavailable Ivelisse, D Gary SHOWROOM SALESPERSON Unavailable Unavailable Ivelisse, D Gary SHOWROOM SALESPERSON Unavailable Unavailable Ivelisse, D Gary SHOWROOM SALESPERSON Unavailable Unavailable Ivelisse, D Gary SHOWROOM SALESPERSON Unavailable Unavailable Ivelisse, D Gary SHOWROOM SALESPERSON Unavailable Unavailable Ivelisse, D Gary SHOWROOM SALESPERSON Unavailable Unavailable Ivelisse, D Gary SHOWROOM SALESPERSON Unavailable Unavailable Ivelisse, D Gary SHOWROOM SALESPERSON Unavailable Unavailable Ivelisse, D Gary SHOWROOM SALESPERSON Unavailable Unavailable Ivelisse, D Gary SHOWROOM SALESPERSON Unavailable Unavailable Ivelisse, D Gary SHOWROOM SALESPERSON Unavailable Unavailable Apple RIVERA MD Unavailable Unavailable Apple RIVERA MD Unavailable Unavailable Apple RIVERA MD Unavailable Unavailable Apple RIVERA MD Unavailable Unavailable Apple RIVERA MD Unavailable Unavailable Apple RIVERA MD Unavailable Unavailable Apple RIVERA MD Unavailable Unavailable Apple RIVERA MD Unavailable Unavailable Apple RIVERA MD Unavailable Unavailable Apple RIVERA MD Unavailable Unavailable Apple RIVERA MD Unavailable Unavailable Apple RIVERA MD Unavailable Unavailable Apple RIVERA MD Unavailable Unavailable Apple RIVERA MD Unavailable Unavailable Apple RIVERA MD Unavailable Unavailable Apple RIVERA MD Unavailable Unavailable Apple RIVERA MD Unavailable Unavailable SATYARALA K DANNY BOBO Unavailable Unavailable CHANDRALA, K DANNY MD Unavailable Unavailable CHANDRALA, K DANNY MD Unavailable Unavailable CHANDRALA, K DANNY MD Unavailable Unavailable CHANDRALA, K DANNY MD Unavailable Unavailable CHANDRALA, K DANNY MD Unavailable Unavailable CHANDRALA, K DANNY MD Unavailable Unavailable CHANDRALA, K DANNY MD Unavailable Unavailable CHANDRALA, K DANNY MD Unavailable Unavailable CHANDRALA, K DANNY MD Unavailable Unavailable CHANDRALA, K DANNY MD Unavailable Unavailable CHANDRALA, K DANNY MD Unavailable Unavailable CHANDRALA, K DANNY MD Unavailable Unavailable CHANDRALA, K DANNY MD Unavailable Unavailable CHANDRALA, K DANNY MD Unavailable Unavailable CHANDRALA, K DANNY MD Unavailable Unavailable NON, PHYSICIAN STAFF Unavailable Unavailable Re-disclosure Warning The records that you are about to access may contain information from federally-assisted alcohol or drug abuse programs. If such information is present, then the following federally mandated warning applies: This information has been disclosed to you from records protected by federal confidentiality rules (42 CFR part 2). The federal rules prohibit you from making any further disclosure of this information unless further disclosure is expressly permitted by the written consent of the person to whom it pertains or as otherwise permitted by 42 CFR part 2. A general authorization for the release of medical or other information is NOT sufficient for this purpose. The Federal rules restrict any use of the information to criminally investigate or prosecute any alcohol or drug abuse patient.The records that you are about to access may contain highly sensitive health information, the redisclosure of which is protected by Article 27-F of the [facility] Public Health law. If you continue you may have access to information: Regarding HIV / AIDS; Provided by facilities licensed or operated by the [facility] Office of Mental Health; or Provided by the [facility] Office for People With Developmental Disabilities. If such information is present, then the following [facility] mandated warning applies: This information has been disclosed to you from confidential records which are protected by state law. State law prohibits you from making any further disclosure of this information without the specific written consent of the person to whom it pertains, or as otherwise permitted by law. Any unauthorized further disclosure in violation of state law may result in a fine or alf sentence or both. A general authorization for the release of medical or other information is NOT sufficient authorization for further disc losure. Allergies and Adverse Reactions Type Description Substance Reaction Status Data Source(s ) No Known Drug Allergies No Known Drug Allergies [facility] Propensity to adverse reactions NO KNOWN ALLERGIES NO KNOWN ALLERGIES [facility] Family History Family Member Name Family Member Gender Family Member Status Date o f Status Description Data Source(s) Unknown Unknown Problem MEDENT ([facility], ) Encounters Encounter Providers Location Date Indications Data Source(s ) Outpatient Attender: Gary Oviedo NPConsultant: STAFF NON 08/30/2021 12:38:00 PM EDT - 08/30/2021 12:38:00 PM EDT [facility] Unknown [address] [facility] [address] 08/21/2021 12:00:00 AM EDT [facility] Unknown [address] [address] 08/18/2021 12:00:00 AM EDT eCW1 [facility] Unknown [address] [address] 07/22/2021 12:00:00 AM EDT eCW1 ([facility]) (WC [id number]) WCenter 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 [address] [place] [address] 07/15/2021 12:00:00 AM EDT eCW1 ([facility]) Unknown [address] [address] 06/25/2021 12:00:00 AM EDT eCW1 ([facility] Unknown [address] [address] 06/21/2021 12:00:00 AM EDT eCW1 ([facility]) Outpatient [address] [address] 06/10/2021 12:00:00 AM EDT eCW1 ([facility]) Unknown [address] [address] 06/09/2021 12:00:00 AM EDT eCW1 ([facility]) [place] [address] [facility] [address] 05/02/2021 12:00:00 AM EDT eCW1 ([facility]) [place] [address] [facility] [address] 04/08/2021 12:00:00 AM EDT eCW1 ([facility]) ([facility] Nurse Visit [address] [place] [address] 03/25/2021 12:00:00 AM EDT eCW1 ([facility]) [place] [address] [facility] [address] 03/19/2021 12:00:00 AM EDT eCW1 ([facility]) [place] [address] [facility] [address] 03/18/2021 12:00:00 AM EDT eCW1 ([facility]) Outpatient Attender: DANNY Vazquez/Jose/Ang el/Reindl 03/12/2021 01:00:00 PM EDT MEDENT ([facility]) Outpatient Attender: DANNY Vazquez/Jose/Ang el/Reindl 01/29/2021 08:30:00 AM EST MEDENT ([facility]) [place] [address] [facility] [address] 01/24/2021 12:00:00 AM EST eCW1 ([facility]) [place] [address] [facility] [address] 01/20/2021 12:00:00 AM EST eCW1 ([facility]) [place] [address] [facility] [address] 01/03/2021 12:00:00 AM EST eCW1 ([facility]) [place] [address] [facility] [address] 01/02/2021 12:00:00 AM EST eCW1 ([facility]) [place] [address] [facility] [address] 11/18/2020 12:00:00 AM EST eCW1 ([facility]) [place] [address] [facility] [address] 11/12/2020 12:00:00 AM EST eCW1 ([facility]) [place] [address] [facility] [address] 11/07/2020 12:00:00 AM EST eCW1 ([facility]) (WC [place]) WCenter Nurse Visit [address] [place] [address] 10/08/2020 12:00:00 AM EST eCW1 ([facility] includes the [facility]) Immunizations Vaccine Date Status Description Data Source(s) 03/25/2021 10:42:00 AM EDT completed e CW1 ([facility]) 03/25/2021 10:42:00 AM EDT completed e CW1 ([facility]) 03/25/2021 10:42:00 AM EDT completed e CW1 ([facility]) 03/25/2021 10:42:00 AM EDT completed e CW1 ([facility]) 03/25/2021 10:42:00 AM EDT completed e CW1 ([facility]) 03/25/2021 10:42:00 AM EDT completed e CW1 ([facility]) 03/25/2021 10:42:00 AM EDT completed e CW1 ([facility]) 03/25/2021 10:42:00 AM EDT completed e CW1 ([facility]) 03/25/2021 10:42:00 AM EDT completed e CW1 ([facility]) 03/25/2021 10:42:00 AM EDT completed e CW1 ([facility]) 03/25/2021 10:42:00 AM EDT completed e CW1 ([facility]) 01/02/2021 04:33:00 PM EST completed e CW1 ([facility]) 01/02/2021 04:33:00 PM EST completed e CW1 ([facility]) 01/02/2021 04:33:00 PM EST completed e CW1 ([facility]) 01/02/2021 04:33:00 PM EST completed e CW1 ([facility]) 01/02/2021 04:33:00 PM EST completed e CW1 ([facility]) 01/02/2021 04:33:00 PM EST completed e CW1 ([facility]) 01/02/2021 04:33:00 PM EST completed e CW1 ([facility]) 01/02/2021 04:33:00 PM EST completed e CW1 ([facility]) 01/02/2021 04:33:00 PM EST completed e CW1 ([facility]) 01/02/2021 04:33:00 PM EST completed e CW1 ([facility]) 01/02/2021 04:33:00 PM EST completed e CW1 ([facility]) 01/02/2021 04:33:00 PM EST completed e CW1 ([facility]) 01/02/2021 04:33:00 PM EST completed e CW1 ([facility]) 01/02/2021 04:33:00 PM EST completed e CW1 ([facility]) 01/02/2021 04:33:00 PM EST completed e CW1 ([facility]) 01/02/2021 04:33:00 PM EST completed e CW1 ([facility]) 01/02/2021 04:33:00 PM EST completed e CW1 ([facility]) 10/08/2020 09:44:00 AM EST completed e CW1 ([facility]) 10/08/2020 09:44:00 AM EST completed e CW1 ([facility]) 10/08/2020 09:44:00 AM EST completed e CW1 ([facility]) 10/08/2020 09:44:00 AM EST completed e CW1 ([facility]) 10/08/2020 09:44:00 AM EST completed e CW1 ([facility]) 10/08/2020 09:44:00 AM EST completed e CW1 ([facility]) 10/08/2020 09:44:00 AM EST completed e CW1 ([facility]) 10/08/2020 09:44:00 AM EST completed e CW1 ([facility]) 10/08/2020 09:44:00 AM EST completed e CW1 ([facility]) 10/08/2020 09:44:00 AM EST completed e CW1 ([facility]) 10/08/2020 09:44:00 AM EST completed e CW1 ([facility]) 10/08/2020 09:44:00 AM EST completed e CW1 ([facility]) 10/08/2020 09:44:00 AM EST completed e CW1 ([facility]) 10/08/2020 09:44:00 AM EST completed e CW1 ([facility]) 10/08/2020 09:44:00 AM EST completed e CW1 ([facility]) 10/08/2020 09:44:00 AM EST completed e CW1 ([facility]) 10/08/2020 09:44:00 AM EST completed e CW1 ([facility]) 10/08/2020 09:44:00 AM EST completed e CW1 ([facility]) 10/08/2020 09:44:00 AM EST completed e CW1 ([facility]) 10/08/2020 09:44:00 AM EST completed e CW1 ([facility]) 10/08/2020 09:44:00 AM EST completed e CW1 ([facility]) Medications Medication Brand Name Start Date Product Form Dose Route Admi nistrative Instructions Pharmacy Instructions Status Indications Reaction Description Data Source(s) Orilissa 150 MG Orilissa 150 MG 05/07/2021 12:00:00 AM EDT 1.0 { tablet} active Orilissa 150 MG eCW1 ([facility]) Orilissa 150 MG Orilissa 150 MG 05/07/2021 12:00:00 AM EDT 1.0 { tablet} active Orilissa 150 MG eCW1 ([facility]) Orilissa 150 MG Orilissa 150 MG 05/07/2021 12:00:00 AM EDT 1.0 { tablet} suspended Orilissa 150 MG eCW1 ([facility]) Orilissa 150 MG Orilissa 150 MG 05/07/2021 12:00:00 AM EDT 1.0 { tablet} active Orilissa 150 MG eCW1 ([facility]) Orilissa 150 MG Orilissa 150 MG 05/07/2021 12:00:00 AM EDT 1.0 { tablet} suspended Orilissa 150 MG eCW1 ([facility]) Orilissa 150 MG Orilissa 150 MG 05/07/2021 12:00:00 AM EDT 1.0 { tablet} suspended Orilissa 150 MG eCW1 ([facility]) Orilissa 150 MG Orilissa 150 MG 05/07/2021 12:00:00 AM EDT 1.0 { tablet} suspended Orilissa 150 MG eCW1 ([facility]) Orilissa 150 MG Orilissa 150 MG 05/07/2021 12:00:00 AM EDT 1.0 { tablet} suspended Orilissa 150 MG eCW1 ([facility]) Orilissa 150 MG Orilissa 150 MG 05/07/2021 12:00:00 AM EDT 1.0 { tablet} active Orilissa 150 MG eCW1 ([facility]) Simethicone 80 MG Chewable Tablet Simethicone 03/12/2021 12:00:00 AM E DT active MEDENT ([facility], ) sennosides, ALF 8.6 MG Oral Tablet Senna 03/12/2021 12:00:00 AM EDT ORAL active MEDENT ([facility], ) Docusate Sodium 100 MG Oral Capsule [Colace] Colace 08/2021 12:00:00 AM EST active MEDENT ( [facility], ) POLYETHYLENE GLYCOL 3350 142 MG/ML Oral Solution [Miralax] M iralax 01/29/2021 12:00:00 AM EST active M EDENT ([facility], ) Azithromycin 250 MG Oral Tablet [Zithromax] Zithromax 250 MG Zithromax 250 MG 11/18/2020 12:00:00 AM EST 4.0 {tablets} suspended Zithromax 250 MG eCW1 ([facility]) Azithromycin 250 MG Oral Tablet [Zithromax] Zithromax 250 MG Zithromax 250 MG 11/18/2020 12:00:00 AM EST 4.0 {tablets} active Zithromax 250 MG eCW1 ([facility]) Azithromycin 250 MG Oral Tablet [Zithromax] Zithromax 250 MG Zithromax 250 MG 11/18/2020 12:00:00 AM EST 4.0 {tablets} suspended Zithromax 250 MG eCW1 ([facility]) Azithromycin 250 MG Oral Tablet [Zithromax] Zithromax 250 MG Zithromax 250 MG 11/18/2020 12:00:00 AM EST 4.0 {tablets} active Zithromax 250 MG eCW1 ([facility]) Insurance Providers Payer name Policy type / Coverage type Policy ID Covered libertarian ID Covered libertarian's relationship to michael Policy Michael Plan Information [facility] U [id number] Child [id number] [facility] Commercial [id number] Family Dependent MEDICAID M [id number] Self [id number] [facility] Health Maintenance Organization (HMO) [id number] Self [id number] [facility] I [id number] Self [id number] [facility] I [id number] Self [id number] Medicaid S [id number] S [id number] Managed Care - Community Plan [facility] P [id number] S [id number] [facility] COMMUNITY PLAN [facility] [id number] SP [id number] [facility] [id number] SP [id number] MEDICAID [id number] SP [id number] Medicaid P [id number] S [id number] [facility] Plan Medicaid [id number] Self [id number] MEDICAID M [id number] S [id number] [facility] COMMUNITY PLAN [id number] 18 [id number] Medicaid [place] Medicaid [id number] Self [id number] MEDICAID [facility] [id number] 18 [id number] MEDICAID -CLINIC [id number] MEDICAID -PHYSICIAN [id number] MEDICAID -O/P [id number] Medicaid [place] Medicaid [id number] Self [id number] Medicaid [place] Medicaid [id number] Self [id number] Medicaid [place] [id number] Self [id number] Medicaid [place] Medicaid [id number] Self [id number] [facility] Health Maintenance Organization (HMO) [id number] Self [id number] [facility] Health Maintenance Organization (HMO) [id number] Self [id number] MEDICAID [id number] SP [id number] [facility] Health Maintenance Organization (HMO) [id number] Self [id number] [facility] Communty Plan Medicaid [id number] Self [id number] Managed Care - Community Plan [employer] P [id number] S [id number] [facility] Communty Plan Medicaid [id number] Self [id number] [facility] Communty Plan Medicaid [id number] Self [id number] [facility] Health Maintenance Organization (HMO) [id number] Self [id number] [facility] Community Plan Medicaid [id number] Self [id number] [facility] Community Plan Medicaid [id number] Self [id number] [facility] COMMUNITY PLAN MCDO [id number] SP [id number] MEDICAID [id number] SP [id number] SELF PAY ONLY [id number] SP [id number] SELF PAY O [id number] S [id number] Medicaid [place] Medigap Part B [id number] Self BS [place] Commercial [id number] [facility] O [id number] C [id number] SELF PAY UNAVAILABLE SP UNAVAILA BLE SELF PAY ONLY UNAVAILABLE SP UNAV AILABLE SELF PAY ONLY [id number] SP [id number] JANELL UNAVAILABLE UNAVAILA BLE [facility] O [id number] S [id number] [facility] [id number] FA2 [id number] [facility] GE PART A [id number] FA2 [id number] [facility] -I/P [id number] 19 [id number] MEDICAID -I/P [id number] MEDICAID -I/P [id number] [employer] [id number] SP [id number] SELF PAY P UNAVAILABLE C UNAVAILA BLE [facility](MCAID) P [id number] C [id number] HMO BLUE [id number] SP [id number] [employer] P [id number] S [id number] D [facility] O [id number] S [id number] Managed Care BCBS P [id number] S [id number] Medicaid Dental S [id number] Medicaid O [id number] S [id number] [employer] PLAN [id number] SP [id number] HMO BLUE [id number] SP [id number] [employer]UE [employer] PLAN [id number] SP [id number] [employer] COMMUNITY PLAN MCDO [id number] SP [id number] BC BS [place]IG[place] [id number] [facility] COMMUNTY PLAN [id number] [facility] [id number] SP [id number] [employer] COMMUNITY PLAN MCDO [id number] SP [id number] [facility](MCAID) O [id number] S [id number] [facility] [id number] SP [id number] Medicaid [place] Medigap Part B [id number] Self [id number] [facility] Communty Plan Medicaid [id number] Self [id number] [employer] COMMUNITY PLAN XIX [id number] 18 [id number] [facility] Health Maintenance Organization (O) [id number] Self [id number] [facility] Health Maintenance Organization (O) [id number] Self [id number] Problems, Conditions, and Diagnoses Code Display Name Description Problem Type Effective Dates Data Source(s) N80.0 Endometriosis of uterus Endometriosis of uterus Proble m 07/21/2021 12:00:00 AM EDT eCW1 ([facility]) K58.2 Irritable bowel syndrome Mixed irritable bowel syndrom e Problem 01/20/2021 12:00:00 AM EST eCW1 ([facility]) N93.9 [id number] Abnormal uterine bleeding (AUB) Problem 11/12/2020 12:00:00 AM EST eCW1 ([facility]) N80.9 [id number] Endometriosis Problem 11/07/2020 12:00:00 AM EST eCW1 ([facility]) N80.9 [id number] Endometriosis determined by laparoscopy Ihsan swann 11/07/2020 12:00:00 AM EST eCW1 ([facility]) Surgeries/Procedures Procedure Description Date Indications Data Source(s) Injection, medroxyprogesterone acetate for contraceptive use , 150 mg 01/02/2021 12:00:00 AM EST eCW1 (Count includes the [facility]) Injection, medroxyprogesterone acetate for contraceptive use , 150 mg 10/08/2020 12:00:00 AM EST eCW1 (Count includes the [facility]) Results ID Date Data Source CHLAMYDIA & GC DNA AMPLIFICAT 03/18/2021 12:00:00 AM EDT eCW 1 ([facility]) Name Value Range Interpretation Code Description Data Yuliya rce(s) Supporting Document(s) Chlamydia trachomatis rRNA [Presence] in Unspecified specimen by Probe and target amplification method NEGATIVE NEGATIVE CHLAMYDIA DNA AMPLIFICATION eCW1 ([facility]) ID Date Data Source [id number] 01/29/2021 01:04:00 PM EST [facility] Name Value Range Interpretation Code Description Data Yuliya rce(s) Supporting Document(s) Helicobacter pylori IgG Ab [Units/volume] in Serum by Immunoassay Laboratory test result Normal (applies to non-numeric results) DAVID ([facility], ) SERUM SAMPLES OBTAINED TOO EARLY DURING INFECTION MAY NOT CONTAIN DETECTABLE ANTIBODIES. IF H. PYLORI INFECTION IS SUSPECTED WITH A "NEGATIVE" SERUM RESULT, A FOLLOW UP SPECIMEN IS RECOMMENDED IN 2-7 WEEKS. ID Date Data Source [id number] 01/29/2021 01:04:00 PM [facility]) Name Value Range Interpretation Code Description Data Yuliya rce(s) Supporting Document(s) Creatinine For GFR 0.67 mg/dL 0.55-1.30 Normal (applies to non -numeric results) [facility]) Glomerular Filtration Rate Laboratory test result Normal (applies to non- numeric results) [facility]) <content>Units are mL/min/1.73 m2</content>
<content></content>
<content>Chronic Kidney Disease Staging per NKF:</content>
<content></content>
<content>Stage I & II GFR >=60 Normal to Mildly Decreased</content>
<content>Stage III GFR 30- 59 Moderately Decreased</content>
<content>Stage IV GFR 15-29 Severely Decreased</content>
<content>Stage V GFR <15 Very Little GFR Left</content>
<content>ESRD GFR <15 on AUTO SERVICE ADVISOR</content>
<content></content> ID Date Data Source [id number] 01/29/2021 01:04:00 PM [facility] ([facility]) Name Value Range Interpretation Code Description Data Yuliya rce(s) Supporting Document(s) Urea nitrogen [Mass/volume] in Serum or Plasma 9 mg/dL 7 -18 Normal (applies to non-numeric results) [facility] ([facility]) ID Date Data Source [id number] 01/29/2021 01:04:00 PM [facility]) Name Value Range Interpretation Code Description Data Yuliya rce(s) Supporting Document(s) Alt/SGPT 20 U/L 12-78 Normal (applies to non-numeric resul ts) [facility]) Ast/Sgot 15 U/L 7-37 Normal (applies to non-numeric resul ts) [facility]) Bilirubin,Total 0.2 mg/dL 0.2-1.0 Normal (applies to non-numeric results) [facility]) Bilirubin,Direct Laboratory test result 0.0-0.2 Normal ( applies to non-numeric results) [facility]) Alkaline Phosphatase 47 U/L 45-117 Normal (applies to non-num jannette results) [facility]) Total Protein 7.1 GM/DL 6.4-8.2 Normal (applies to non-numeric re sults) [facility]) Albumin 4.3 GM/DL 3.2-5.2 Normal (applies to non-numeric resul ts) [facility]) Albumin/Globulin Ratio 1.5 1.2-2.2 Normal (applies to non-n umeric results) [facility]) ID Date Data Source [id number] 01/29/2021 01:04:00 PM EST [facility]) Name Value Range Interpretation Code Description Data Yuliya rce(s) Supporting Document(s) Igasub3 18.0 mg/dL 13.4-97.9 Normal (applies to non-numeric resul ts) [facility]) Igasub2 180.0 mg/dL 73.2-301.2 Normal (applies to non-numeric resu lts) [facility]) IgA Serum (part of Subclasses) 214 mg/dL 87-352 N ormal (applies to non-numeric results) [facility]) ID Date Data Source [id number] 01/29/2021 01:04:00 PM EST [facility]) Name Value Range Interpretation Code Description Data Yuliya rce(s) Supporting Document(s) Tissue transglutaminase IgA Ab [Units/volume] in Serum Labor atory test result 0-3 Normal (applies to non-numeric results) [facility]) Negative 0 - 3 Weak Positive 4 - 10 Positive >10 . Tissue Transglutaminase (tTG) has been identified as the endomysial antigen. Studies have demonstr- ated that endomysial IgA antibodies have over 99% specificity for gluten sensitive enteropathy. Performed at: - [facility] [address] [id number] Medical Information Specialist: Shira Avalos MD, Phone: [phone] Performed at: - [facility] [address] [id number] Medical Information Specialist: Gerry Kunz MD, Phone: [phone] ID Date Data Source [id number] 01/29/2021 01:04:00 PM EST [facility] ([facility]) Name Value Range Interpretation Code Description Data Yuliya rce(s) Supporting Document(s) Vitamin B12 Level 747 pg/mL Normal (applies to non-numeri c results) [facility] ([facility]) VITAMIN B12 NORMAL RANGE NORMAL 247 - 911 PG/ML INDETERMINATE 211 - 246 PG/ML DEFICIENT LESS THAN 211 PG/ML Folate 13.3 ng/mL Normal (applies to non-numeric resul ts) [facility] ([facility]) FOLATE NORMAL RANGE NORMAL GREATER THAN 5.4 NG/ML INDETERMINATE 3.4-5.4 NG/ML DEFICIENT LESS THAN 3.4 NG/ML ID Date Data Source [id number] 01/29/2021 01:04:00 PM EST [facility] ([facility]) Name Value Range Interpretation Code Description Data Yuliya rce(s) Supporting Document(s) Iron (Fe) 84 ug/dL 50-170 Normal (applies to non-numeric resul ts) [facility] ([facility]) Total Iron Binding Capacity 302 ug/dL 250-450 Norm al (applies to non-numeric results) [facility]) Percent Saturation 27.8 % 13.2-45.0 Normal (applies to non-numer ic results) [facility]) ID Date Data Source [id number] 01/29/2021 01:04:00 PM EST [facility]) Name Value Range Interpretation Code Description Data Yuliya rce(s) Supporting Document(s) Red Blood Count 4.34 10 4.00-5.40 Normal (applies to non-numeric results) [facility], ) Hemoglobin 13.1 g/dL 12.0-15.5 Normal (applies to non-numeric resul ts) [facility]) White Blood Count 7.8 10 4.0-10.0 Normal (applies to non-numeri c results) [facility]) Hematocrit 40.9 % 36.0-47.0 Normal (applies to non-numeric resul ts) [facility]) Mean Corpuscular Volume 94.2 fl 80.0-96.0 Normal ( applies to non-numeric results) [facility]) Mean Corpuscular HGB Conc 32.0 g/dL 32.0-36.5 Normal (applies to non-numeric results) [facility]) Mean Corpuscular Hemoglobin 30.2 pg 27.0-33.0 Norm al (applies to non-numeric results) [facility] ([facility], ) Platelet Count, Automated 219 10 150-450 Normal (applies to non-numeric results) [facility]) Red Cell Distribution Width 13.0 % 11.5-14.5 Norm al (applies to non-numeric results) [facility]) Neutrophils % 60.7 % 36.0-66.0 Normal (applies to non-numeric re sults) [facility], ) Lymph % 28.9 % 24.0-44.0 Normal (applies to non-numeric resul ts) [facility] [place] % 8.8 % 2.0-8.0 Above high normal [facility]) Baso % 0.5 % 0.0-1.0 Normal (applies to non-numeric resul ts) [facility] Eos % 1.0 % 0.0-3.0 Normal (applies to non-numeric resul ts) [facility]) Immature Granulocyte % 0.1 % 0-3.0 Normal (applies to non-n umeric results) [facility]) Neutrophils # 4.7 10 1.5-8.5 Normal (applies to non-numeric re sults) [facility] ([facility]) Nucleated Red Blood Cell % 0.0 % 0-0 Normal (applies to n on-numeric results) [facility] ([facility]) Lymph # 2.3 10 1.5-5.0 Normal (applies to non-numeric resul ts) [facility] ([facility]) Eos # 0.1 10 0.0-0.5 Normal (applies to non-numeric resul ts) [facility] ([facility]) [place] # 0.7 10 0.0-0.8 Normal (applies to non-numeric resul ts) [facility] ([facility]) Baso # 0.0 10 0.0-0.2 Normal (applies to non-numeric resul ts) [facility] ([facility]) ID Date Data Source PAP REQUEST FOR SERVICE 11/07/2020 12:00:00 AM EST eCW1 ([facility]) Name Value Range Interpretation Code Description Data Yuliya rce(s) Supporting Document(s) PAP REQUEST FOR SERVICE eCW1 ( [facility]) Procedure Social History Code Duration Value Status Description Data Source(s ) Smoking 07/14/2021 12:00:00 AM EDT Former Smoker completed Former Smoker eCW1 ([facility]) Smoking 07/14/2021 12:00:00 AM EDT Former Smoker completed Former Smoker eCW1 ([facility]) Smoking 07/14/2021 12:00:00 AM EDT Former Smoker completed Former Smoker eCW1 ([facility]) Smoking 07/14/2021 12:00:00 AM EDT Former Smoker completed Former Smoker eCW1 ([facility]) Smoking 07/14/2021 12:00:00 AM EDT Former Smoker completed Former Smoker eCW1 ([facility]) Smoking 06/10/2021 12:00:00 AM EDT Former Smoker completed Former Smoker eCW1 ([facility]) Smoking 06/10/2021 12:00:00 AM EDT Former Smoker completed Former Smoker eCW1 ([facility]) Smoking 04/25/2021 12:00:00 AM EDT Former Smoker completed Former Smoker eCW1 ([facility]) Smoking 04/25/2021 12:00:00 AM EDT Former Smoker completed Former Smoker eCW1 ([facility]) Smoking 03/18/2021 12:00:00 AM EDT Former Smoker completed Former Smoker eCW1 ([facility]) Smoking 03/18/2021 12:00:00 AM EDT Former Smoker completed Former Smoker eCW1 ([facility]) Smoking 03/18/2021 12:00:00 AM EDT Former Smoker completed Former Smoker eCW1 ([facility]) Smoking 03/18/2021 12:00:00 AM EDT Former Smoker completed Former Smoker eCW1 ([facility]) Smoking 01/20/2021 12:00:00 AM EST Current Smoker completed Curre nt Smoker eCW1 ([facility]) Smoking 01/20/2021 12:00:00 AM EST Current Smoker completed Curre nt Smoker eCW1 ([facility]) Smoking 01/02/2021 12:00:00 AM EST Current Smoker completed Curre nt Smoker eCW1 ([facility]) Smoking 01/02/2021 12:00:00 AM EST Current Smoker completed Curre nt Smoker eCW1 ([facility]) Smoking 11/07/2020 12:00:00 AM EST Current Smoker completed Curre nt Smoker eCW1 ([facility]) Smoking 11/07/2020 12:00:00 AM EST Current Smoker completed Curre nt Smoker eCW1 ([facility]) Smoking 11/07/2020 12:00:00 AM EST Current Smoker completed Curre nt Smoker eCW1 ([facility]) Smoking 11/07/2020 12:00:00 AM EST Current Smoker completed Curre nt Smoker eCW1 ([facility]) Vital Signs ID Date Data Source UNK Name Value Range Interpretation Code Description Data Source(s) Systolic blood pressure 112 mm[Hg] 112 mm[Hg] M EDENT ([facility]) Diastolic blood pressure 76 mm[Hg] 76 mm[Hg] [facility] ([facility]) Heart rate 70 /min 70 /min [facility] ([facility]) Body temperature 97.2 [degF] 97.2 [degF] [facility] ([facility]) Oxygen saturation in Arterial blood by Pulse oximetry 98 % 98 % [facility] ([facility]) Body weight 120.4 [lb_av] 120.4 [lb_av] eCW1 ([facility]) Body height 64 [in_i] 64 [in_i] eCW1 ([facility]) Body mass index (BMI) [Ratio] 20.66 kg/m2 20.66 kg/m2 eCW1 ([facility]) Systolic blood pressure 104 mm[Hg] 104 mm[Hg] e CW1 ([facility]) Diastolic blood pressure 64 mm[Hg] 64 mm[Hg] eCW1 ([facility]) Body weight 120 [lb_av] 120 [lb_av] eCW1 ([facility]) Body height 64 [in_i] 64 [in_i] eCW1 ([facility]) Body mass index (BMI) [Ratio] 20.60 kg/m2 20.60 kg/m2 eCW1 ([facility]) Heart rate 106 /min 106 /min eCW1 ([facility]) Respiratory rate 18 /min 18 /min eCW1 ([facility]) Body temperature 97.2 [degF] 97.2 [degF] eCW1 ( [facility]) Systolic blood pressure 112 mm[Hg] 112 mm[Hg] e CW1 ([facility]) Diastolic blood pressure 66 mm[Hg] 66 mm[Hg] eCW1 ([facility]) Body weight 120 [lb_av] 120 [lb_av] eCW1 ([facility]) Body height 64 [in_i] 64 [in_i] eCW1 ([facility]) Body mass index (BMI) [Ratio] 20.6 kg/m2 20.6 k g/m2 eCW1 ([facility]) Systolic blood pressure 134 mm[Hg] 134 mm[Hg] e CW1 ([facility]) Diastolic blood pressure 80 mm[Hg] 80 mm[Hg] eCW1 ([facility]) Body weight 125 [lb_av] 125 [lb_av] eCW1 ([facility]) Body weight 56.7 kg 56.7 kg eCW1 ([facility]) Body height 64 [in_i] 64 [in_i] eCW1 ([facility]) Body mass index (BMI) [Ratio] 21.45 kg/m2 21.45 kg/m2 eCW1 ([facility]) Systolic blood pressure 146 mm[Hg] 146 mm[Hg] e CW1 ([facility]) Diastolic blood pressure 90 mm[Hg] 90 mm[Hg] eCW1 ([facility]) Systolic blood pressure 102 mm[Hg] 102 mm[Hg] M EDENT ([facility], ) Diastolic blood pressure 66 mm[Hg] 66 mm[Hg] [facility], ) Body height 63 [in_i] 63 [in_i] [facility]) 5'3" Body weight 126.00 [lb_av] 126.00 [lb_av] MEDEN T ([facility]) Body mass index (BMI) [Ratio] 22.3 kg/m2 22.3 k g/m2 [facility] ([facility]) [place] body weight 115 [lb_av] 115 [lb_av] MEDEN T ([facility], ) Body weight 57.154 kg 57.154 kg [facility] ([facility]) Body surface area Derived from formula 1.59 m2 1.59 m2 [facility] ([facility]) Systolic blood pressure 106 mm[Hg] 106 mm[Hg] M EDENT ([facility], ) Diastolic blood pressure 58 mm[Hg] 58 mm[Hg] [facility] Body height 63 [in_i] 63 [in_i] [facility] ([facility]) 5'3" Body weight 126.00 [lb_av] 126.00 [lb_av] MEDEN T ([facility]) Body mass index (BMI) [Ratio] 22.3 kg/m2 22.3 k g/m2 [facility] ([facility]) [place] body weight 115 [lb_av] 115 [lb_av] MEDEN T ([facility]) Body weight 57.154 kg 57.154 kg [facility] ([facility]) Body surface area Derived from formula 1.59 m2 1.59 m2 [facility] ([facility]) Body weight 132 [lb_av] 132 [lb_av] eCW1 ([facility]) Body height 64 [in_i] 64 [in_i] eCW1 ([facility]) Body mass index (BMI) [Ratio] 22.66 kg/m2 22.66 kg/m2 W1 ([facility]) Heart rate 126 /min 126 /min eCW1 ([facility]) Respiratory rate 18 /min 18 /min eCW1 ([facility]) Body temperature 98.8 [degF] 98.8 [degF] eCW1 ( [facility]) Systolic blood pressure 110 mm[Hg] 110 mm[Hg] e CW1 ([facility]) Diastolic blood pressure 68 mm[Hg] 68 mm[Hg] eCW1 ([facility]) Body weight 136 [lb_av] 136 [lb_av] eCW1 ([facility]) Body weight 61.69 kg 61.69 kg eCW1 ([facility]) Body height 64 [in_i] 64 [in_i] eCW1 ([facility]) Body mass index (BMI) [Ratio] 23.34 kg/m2 23.34 kg/m2 eCW1 ([facility]) Systolic blood pressure 110 mm[Hg] 110 mm[Hg] e CW1 ([facility]) Diastolic blood pressure 70 mm[Hg] 70 mm[Hg] eCW1 ([facility]) Body weight 136 [lb_av] 136 [lb_av] eCW1 ([facility]) Body weight 61.69 kg 61.69 kg eCW1 ([facility]) Body height 64 [in_i] 64 [in_i] eCW1 ([facility]) Body mass index (BMI) [Ratio] 23.34 kg/m2 23.34 kg/m2 eCW1 ([facility]) Systolic blood pressure 110 mm[Hg] 110 mm[Hg] e CW1 ([facility]) Diastolic blood pressure 68 mm[Hg] 68 mm[Hg] eCW1 ([facility]) Patient Treatment Plan of Care Planned Activity Planned Date Details Description Data Source (s) Orilissa 150 MG 05/07/2021 12:00:00 AM EDT eCW1 ([facility]) Orilissa 150 MG 05/07/2021 12:00:00 AM EDT eCW1 ([facility]) Orilissa 150 MG 05/07/2021 12:00:00 AM EDT eCW1 ([facility]) Orilissa 150 MG 05/07/2021 12:00:00 AM EDT eCW1 ([facility]) Azithromycin 250 MG Oral Tablet [Zithromax] 11/18/2020 12:00:00 AM EST eCW1 ([facility]) Azithromycin 250 MG Oral Tablet [Zithromax] 11/18/2020 12:00:00 AM EST eCW1 ([facility])
--- OUTSIDE RECORDS SUMMARY | 2021-10-08 08:34 | CCD ---
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 Active confirmed 497933337 Problem Mixed irritable bowel syndrome K58.2 Active confir med 45886023 Problem Endometriosis of uterus N80.0 Active confirmed 30203429 Problem Migraine G43.909 Active confirmed 88434799 Problem Endometriosis determined by laparoscopy N80.9 Active confirmed 638486942 Problem Endometriosis N80.9 Active confirmed 392356 003 Problem Abnormal uterine bleeding (AUB) N93.9 Active confirmed [id number] ALLERGIES Allergen (clinical drug ingredient) Drug/Non Drug Allergy do cumented on EMR Reaction Allergy Type Onset Date Status Latex latex red, itchy, and swollen Non Drug Allergy Active ENCOUNTERS from 1994 to 2021-07-22 Encounter Location Date Provider Diagnosis [address] [phone] [place] [address] Jun, Radha Escobar IMMUNIZATIONS Vaccine Route Administration Date Status Depo-Provera [...] Information RESULTS No Results REASON FOR VISIT no show informational letter MEDICAL (GENERAL) HISTORY Type Description Date Medical History Disc bulge L4-5 - 06/2015 MRI spine - pain [facility] [place] Medical History Endometriosis - f/[facility] Medical History lactose intolerance Medical History depression Medical History anxiety Surgical History Ectopic 07/2012 Surgical History Endoscopy & Colonoscopy Dr. inocencia Polanco i, [facility] 01/2010 Surgical History GI studies dr. Becerra. 2010 Surgical History CYSTOSCOPY 12/05 Surgical History DENTAL SURGERY 03/05 Surgical History Gastro 09/2019 Hospitalization History surgery related Hospitalization History Pain control 10/2013 Goals Section No Information Health Concerns No Information MEDICAL EQUIPMENT No Information MENTAL STATUS No Information FUNCTIONAL STATUS No Information ASSESSMENTS No Information PLAN OF TREATMENT No Information Insurance Providers Payer Name Payer Address Payer Phone Insured Name Patient Relati onship to Insured Coverage Start Date Coverage End Date [facility] COMM[facility]AN [facility] [address] [facility] [phone] ALENA VEÁLSQUEZ self
--- OUTSIDE RECORDS SUMMARY | 2021-10-08 08:34 | CCD ---
Author Author [facility] Organization [facility] Address Unknown Phone Unavailable Care Team Providers Care Twist Tester Name Role Phone HillClifford Unavailable PROBLEMS Type Condition ICD9-CM Code [id number] Code Onset Dates Condition S tatus W/U Status Risk SNOMED Code Notes Problem Abnormal uterine bleeding (AUB) N93.9 Active confirmed [id number] Problem Mixed irritable bowel syndrome K58.2 Active confir med 53776864 Problem Migraine G43.909 Active confirmed 16270291 Problem Bulging lumbar disc M51.26 Active confirmed 005121956 Problem Endometriosis determined by laparoscopy N80.9 Active confirmed 235529686 Problem Endometriosis N80.9 Active confirmed 753913 003 ALLERGIES Allergen (clinical drug ingredient) Drug/Non Drug Allergy do cumented on EMR Reaction Allergy Type Onset Date Status Latex latex red, itchy, and swollen Non Drug Allergy Active ENCOUNTERS from 1994 to 2021-07-16 Encounter Location Date Provider Diagnosis [facility] [address] [place] [address] [place] [address] Jun, Clifford Alejandre IMMUNIZATIONS Vaccine Route Administration Date [...] Information RESULTS No Results REASON FOR VISIT orilissa MEDICAL (GENERAL) HISTORY Type Description Date Medical History Disc bulge L4-5 - 06/2015 MRI spine - pain [facility] [place] Medical History Endometriosis - f/[place] [facility] [place] Medical History lactose intolerance Medical History depression Medical History anxiety Surgical History Ectopic 07/2012 Surgical History Endoscopy & Colonoscopy Dr. inocencia Polanco i, [facility] 01/2010 Surgical History GI studies dr. Becerra. 2010 Surgical History CYSTOSCOPY 12/05 Surgical History DENTAL SURGERY 03/05 Surgical History Gastro 09/2019 Hospitalization History surgery related Hospitalization History Pain control 10/2013 Goals Section No Information Health Concerns No Information MEDICAL EQUIPMENT No Information MENTAL STATUS No Information FUNCTIONAL STATUS No Information ASSESSMENTS No Information PLAN OF TREATMENT Next Appt Details Provider Name:Radha Escobar, 1-0 07-22 11:00:00 AM, [address] [facility], , [place], [address], Insurance Providers Payer Name Payer Address Payer Phone Insured Name Patient Relati onship to Insured Coverage Start Date Coverage End Date [facility] COMMUNITY PLAN [facility] [address] [facility] [phone] ALENA VELÁSQUEZ self
[2021-10-08] MEDS ORDERED: DOCUSATE SODIUM 100MG CAPSULE PO SCH (09:00)
[2021-10-08 09:09] LABS: HEMOGLOBIN 12.9 g/dl (12.0-15.5); MEAN CORPUSCULAR HEMOGLOBIN 29.9 pg (27.0-33.0); MEAN CORPUSCULAR HGB CONC 31.5 g/dl (32.0-36.5); MEAN CORPUSCULAR VOLUME 95.1 fl (80.0-96.0); PLATELET COUNT, AUTOMATED 223 10^3/uL (150-450); RED BLOOD COUNT 4.31 10^6/uL (4.00-5.40); WHITE BLOOD COUNT 6.4 10^3/uL (4.0-10.0)
[2021-10-08] MEDS ORDERED: BUPIVACAINE HCL 0.25% 10ML VIAL As Ordered ONE (09:37)
[2021-10-08] MEDS ORDERED: fentaNYL 100 MCG/2 ML INJECTION (J3010) As Ordered ONE (09:41)
[2021-10-08] MEDS ORDERED: MIDAZOLAM INJ 2MG/2ML VIAL (J2250 PER 1MG) As Ordered ONE (09:41)
[2021-10-08] MEDS ORDERED: HYDROmorphone HCL 2 MG/ML 1ML VIAL As Ordered ONE (11:27)
[2021-10-08] MEDS ORDERED: fentaNYL 100 MCG/2 ML INJECTION (J3010) IV PRN (12:10)
[2021-10-08] MEDS ORDERED: LR 1,000 ML IV SCH ×2 (12:10→12:15)
[2021-10-08] MEDS ORDERED: ONDANSETRON 4MG/2ML VIAL IV PRN ×2 (12:10→12:15)
[2021-10-08] MEDS ORDERED: PERCOCET 5MG/325MG TAB PO PRN (12:15)
[2021-10-08] MEDS: HYDROMORPHONE HCL 0.5 MG/ 0.5 ML SYRINGE (J1170 PER 1) IV PRN ×4 (12:16→12:55)
[2021-10-08] MEDS ORDERED: KETOROLAC 30 MG/ML 1ML VIAL IV PRN (12:20)
--- NOTE | 2021-10-08 12:21 | ROOPDOC ---
[facility] Report Of Operation Report of Operation DATE OF PROCEDURE: 10/08/21 OPERATIVE REPORT: Preoperative diagnosis: Pelvic pain, endometriosis. Postoperative diagnosis: Same. Procedure: Robotic-assisted laparoscopic hysterectomy, right salpingo- oophorectomy, left salpingectomy, cystoscopy. Surgeon: Clifford Duong M.D. Findings: Normal uterus, fallopian tubes, ovaries. Normal upper abdomen. EBL: 100 mL's. Urine output: 100 mL's. Operative summary: Patient was taken to the operating room where general endotracheal anesthesia was induced. She was prepped and draped in sterile fashion in the dorsal lithotomy position. A Bourgeois Catheter was placed. A V care uterine manipulator was placed. A Periumbilical incision was made with a scalpel. A Veress needle was placed through this incision. Intra-abdominal location of Veress needle was assessed with saline filled syringe. A pneumoperitoneum was created. The Veress needle was removed. An 8 mm trocar using the Visiport was inserted through this incision. Three 8 mm suprapubic ports were placed under direct visualization The patient was placed in Trendel enburg position. The da Brian surgical robot was docked to the ports. Using the fenestrated bipolar instrument and vessel sealer, the right IP ligaments and broad ligaments were coagulated and incised. The round ligaments were coagulated and incised. The anterior and posterior leaves of the broad ligament were . Bladder flap was created. The uterine vessels were coagulated and incised using monopolar Endo Smooth. A colpotomy was created in the upper vagina at the level of the V care Cup. The specimen including the uterus, cervix, bilateral fallopian tubes and right ovary was removed through the vagina. The vaginal cuff was closed with #1 V lock suture in running fashion. Cystoscopy was performed using a 70 cystoscope. Bilateral ureteral jets were identified. No evidence of injury to the bladder. The cystoscope was removed. All instruments removed. The skin was closed with 4-0 Monocryl subcuticular sutures. CLIFFORD DUONG MD Oct 08, 2021 12:21
[2021-10-08] MEDS ORDERED: OXYC1TAB23 PO (12:22)
[2021-10-08] MEDS ORDERED: IBUP-1022 PO (12:22)
[2021-10-08] MEDS: oxyCODONE 5MG TAB PO PRN ×2 (13:04→13:54)
[2021-10-08 14:45] VITALS: BP 117/71
== END 2021-10-08 15:25 | disposition home or self-care (01) ==
LOC: M SDC 08:29
PROVIDERS: ATTEND Specialist
DX: R10.2 Pelvic and perineal pain (principal); N80.0 Endometriosis of uterus; F41.9 Anxiety disorder, unspecified; F32.9 Major depressive disorder, single episode, unspecified; K58.8 Other irritable bowel syndrome; Z91.040 Latex allergy status; Z91.018 Allergy to other foods; Z79.899 Other long term (current) drug therapy
CPT/HCPCS: 36415; 58571; 81025; 85027; 86850; 86900; 86901; 88307; J0690; J1100; J1170; J2250; J2405; J3010; S2900

== ENCOUNTER 2022-02-21 18:38 | Emergency (ER) | payer MEDICAID, OTHER ==
[~2022-02-21] VITALS: Ht 160 cm; Wt 59.1 kg
[~2022-02-21 18:38] MED LIST changes: +IBUP-1022 PO; -LIDOCAINE 2% 100MG/5ML SDV (FOR ANES.) As Ordered ONE; -LIDOCAINE 2% INJ 100 MG/5 ML SYRINGE As Ordered ONE; -LR 1,000 ML IV ONE; -ONDANSETRON 4MG/2ML VIAL As Ordered ONE; +OXYC1TAB23 PO; -ROCURONIUM BROMIDE 50 MG/5 ML VIAL As Ordered ONE; -SUGAMMADEX SODIUM 500 MG/5 ML VIAL (BRIDION) As Ordered ONE; -ceFAZolin SOD 2 GM in IV 1 EA IV ONE; -dexameTHASONE 4 MG/ML 1ML VIAL (J1100 PER 1MG) As Ordered ONE; -propofoL 200 MG/20 ML VIAL As Ordered ONE
[2022-02-21 18:39] VITALS: BP 116/79
[2022-02-21] MEDS ORDERED: [UNRECOGNIZED DRUG - CODE] EX (18:51)
[2022-02-21] MEDS ORDERED: BACITRACIN OINTMENT 30GM TUBE TOP ONE (19:10)
== END 2022-02-21 20:14 | disposition home or self-care (01) ==
LOC: M ED 18:38
DX: L03.114 Cellulitis of left upper limb (principal); T23.202A Burn of second degree of left hand, unspecified site, initial encounter; T31.0 Burns involving less than 10% of body surface; F41.8 Other specified anxiety disorders; F32.A Depression, unspecified; I10 Essential (primary) hypertension; Z91.02 Food additives allergy status; Z91.040 Latex allergy status; Y92.9 Unspecified place or not applicable; Y93.9 Activity, unspecified; Y99.9 Unspecified external cause status

== ENCOUNTER → 2022-09-16 | Outpatient (CLI) | payer OTHER ==
[~2022-09-16] MED LIST changes: +[UNRECOGNIZED DRUG - CODE] EX
[2022-09-16 16:19] LABS: BASO # 0.1 10^3/uL (0.0-0.2); BASO % 0.4 % (0.0-1.0); EOS # 0.1 10^3/uL (0.0-0.5); EOS % 0.4 % (0.0-3.0); HEMATOCRIT 42.1 % (36.0-47.0); LYMPH # 1.7 10^3/uL (1.5-5.0); LYMPH % 10.2 % (24.0-44.0); MEAN CORPUSCULAR HEMOGLOBIN 29.8 pg (27.0-33.0); MEAN CORPUSCULAR HGB CONC 30.9 g/dl (32.0-36.5); MEAN CORPUSCULAR VOLUME 96.6 fl (80.0-96.0); MONO # 1.5 10^3/uL (0.0-0.8); MONO % 9.3 % (2.0-8.0); NEUTROPHILS # 12.8 10^3/uL (1.5-8.5); NEUTROPHILS % 79.2 % (36.0-66.0); PLATELET COUNT, AUTOMATED 263 10^3/uL (150-450); RED BLOOD COUNT 4.36 10^6/uL (4.00-5.40); WHITE BLOOD COUNT 16.2 10^3/uL (4.0-10.0)
[2022-09-16 17:56] LABS: ALBUMIN 3.8 GM/DL (3.2-5.2); ALT/SGPT 19 U/L (12-78); BILIRUBIN,TOTAL 0.4 MG/DL (0.2-1.0); BLOOD UREA NITROGEN 11 MG/DL (7-18); CALCIUM LEVEL 8.9 MG/DL (8.5-10.1); CARBON DIOXIDE LEVEL 29 MEQ/L (21-32); CHLORIDE LEVEL 104 MEQ/L (98-107); CREATININE FOR GFR 0.97 MG/DL (0.55-1.30); FREE T4 0.94 NG/DL (0.76-1.46); GLOMERULAR FILTRATION RATE > 60.0 (>60); GLUCOSE, FASTING 91 MG/DL (70-100); SODIUM LEVEL 139 MEQ/L (136-145); THYROID STIMULATING HORMONE 0.745 uIU/ML (0.358-3.740); TOTAL PROTEIN 6.9 GM/DL (6.4-8.2)
== END ==
LOC: M PLALAB 11:56
PROVIDERS: ATTEND Nurse Practitioner Family
DX: F41.9 Anxiety disorder, unspecified (principal)

== ENCOUNTER → 2022-12-28 | Outpatient (REF) | payer OTHER | LOC: M PLALAB 13:59 | PROVIDERS: ATTEND Nurse Practitioner Family | DX: N39.0 Urinary tract infection, site not specified (principal) ==

== ENCOUNTER → 2023-01-22 | Outpatient (CLI) | payer OTHER ==
[2023-01-22 10:36] LABS: BASO # 0.1 10^3/uL (0.0-0.2); BASO % 0.7 % (0.0-1.0); EOS # 0.1 10^3/uL (0.0-0.5); HEMATOCRIT 43.7 % (36.0-47.0); HEMOGLOBIN 13.7 g/dl (12.0-15.5); LYMPH # 1.7 10^3/uL (1.5-5.0); LYMPH % 20.4 % (24.0-44.0); MEAN CORPUSCULAR HEMOGLOBIN 29.9 pg (27.0-33.0); MEAN CORPUSCULAR HGB CONC 31.4 g/dl (32.0-36.5); MEAN CORPUSCULAR VOLUME 95.4 fl (80.0-96.0); MONO # 0.7 10^3/uL (0.0-0.8); MONO % 8.1 % (2.0-8.0); NEUTROPHILS # 5.6 10^3/uL (1.5-8.5); NEUTROPHILS % 69.2 % (36.0-66.0); PLATELET COUNT, AUTOMATED 228 10^3/uL (150-450); RED BLOOD COUNT 4.58 10^6/uL (4.00-5.40); WHITE BLOOD COUNT 8.1 10^3/uL (4.0-10.0)
[2023-01-22 11:07] LABS: ALBUMIN 3.9 G/DL (3.2-5.2); ALKALINE PHOSPHATASE 54 U/L (46-116); ALT/SGPT 14 U/L (7.0-40); AST/SGOT 16 U/L (<34); BILIRUBIN,TOTAL 0.4 MG/DL (0.3-1.2); BLOOD UREA NITROGEN 12 MG/DL (9-23); CALCIUM LEVEL 8.8 MG/DL (8.5-10.1); CARBON DIOXIDE LEVEL 28 MMOL/L (20-31); CHLORIDE LEVEL 103 MMOL/L (98-107); CREATININE FOR GFR 0.61 MG/DL (0.55-1.30); FREE T4 1.04 NG/DL (0.89-1.76); GLOMERULAR FILTRATION RATE > 60.0 (>60); GLUCOSE, FASTING 142 MG/DL (60-100); POTASSIUM SERUM 4.2 MMOL/L (3.5-5.1); SODIUM LEVEL 138 MMOL/L (136-145); THYROID STIMULATING HORMONE 1.594 uIU/ML (0.55-4.78); TOTAL PROTEIN 6.8 G/DL (5.7-8.2)
== END ==
LOC: M PLALAB 08:51
PROVIDERS: ATTEND Physician Assistant
DX: F41.9 Anxiety disorder, unspecified (principal); F32.9 Major depressive disorder, single episode, unspecified; F43.10 Post-traumatic stress disorder, unspecified; R00.0 Tachycardia, unspecified

== ENCOUNTER → 2023-02-09 | Outpatient (REF) | payer OTHER | LOC: M LAB REF 12:11 | PROVIDERS: ATTEND Physician Assistant | DX: L03.012 Cellulitis of left finger (principal) ==

== ENCOUNTER → 2023-04-07 | Outpatient (CLI) | payer OTHER | LOC: M PAIN 13:00 | PROVIDERS: ATTEND Anesthesiology | DX: R10.2 Pelvic and perineal pain (principal); G89.29 Other chronic pain; M79.2 Neuralgia and neuritis, unspecified; Z86.59 Personal history of other mental and behavioral disorders; Z87.891 Personal history of nicotine dependence; Z91.040 Latex allergy status; Z79.899 Other long term (current) drug therapy ==

== ENCOUNTER → 2023-05-07 | Outpatient (CLI) | payer OTHER ==
[2023-05-07 12:51] LABS: BASO # 0.1 10^3/uL (0.0-0.2); BASO % 0.7 % (0.0-1.0); EOS % 0.5 % (0.0-3.0); HEMATOCRIT 42.7 % (36.0-47.0); HEMOGLOBIN 13.4 g/dl (12.0-15.5); LYMPH % 23.3 % (24.0-44.0); MEAN CORPUSCULAR HGB CONC 31.4 g/dl (32.0-36.5); MEAN CORPUSCULAR VOLUME 95.5 fl (80.0-96.0); MONO # 0.8 10^3/uL (0.0-0.8); MONO % 8.8 % (2.0-8.0); NEUTROPHILS # 5.7 10^3/uL (1.5-8.5); NEUTROPHILS % 66.1 % (36.0-66.0); PLATELET COUNT, AUTOMATED 253 10^3/uL (150-450); RED BLOOD COUNT 4.47 10^6/uL (4.00-5.40); WHITE BLOOD COUNT 8.6 10^3/uL (4.0-10.0)
[2023-05-07 13:21] LABS: LIPASE 37 U/L (12-53)
[2023-05-07 13:22] LABS: C REACTIVE PROTEIN QUANTITATIV < 0.40 MG/DL (<1.0)
[2023-05-07 13:23] LABS: ALBUMIN 4.2 G/DL (3.2-5.2); ALKALINE PHOSPHATASE 56 U/L (46-116); ALT/SGPT 13 U/L (7.0-40); AMYLASE 67 U/L (30-118); AST/SGOT < 8 U/L (<34); BILIRUBIN,TOTAL 0.4 MG/DL (0.3-1.2); BLOOD UREA NITROGEN 9 MG/DL (9-23); CALCIUM LEVEL 10.1 MG/DL (8.5-10.1); CARBON DIOXIDE LEVEL 30 MMOL/L (20-31); CHLORIDE LEVEL 104 MMOL/L (98-107); CREATININE FOR GFR 0.81 MG/DL (0.55-1.30); GLOMERULAR FILTRATION RATE > 60.0 (>60); GLUCOSE, FASTING 83 MG/DL (60-100); SODIUM LEVEL 141 MMOL/L (136-145)
== END ==
LOC: M WUC 11:39
PROVIDERS: ATTEND Physician Assistant
DX: R10.84 Generalized abdominal pain (principal)

== ENCOUNTER → 2023-06-22 | Outpatient (CLI) | payer OTHER | LOC: M PAIN 15:15 | PROVIDERS: ATTEND Anesthesiology | DX: R10.2 Pelvic and perineal pain (principal); G57.90 Unspecified mononeuropathy of unspecified lower limb; Z86.59 Personal history of other mental and behavioral disorders; Z87.891 Personal history of nicotine dependence; Z91.040 Latex allergy status; Z79.899 Other long term (current) drug therapy ==

== ENCOUNTER → 2023-08-27 | Outpatient (CLI) | payer OTHER ==
[~2023-08-27] MED LIST changes: +ISOVUE-M 300 61% 15ML VIAL As Ordered ONE; +LIDOCAINE 1% SDV 30ML VIAL As Ordered ONE; +MECL-209 PO; -MECL1TAB31 PO; +NORCO, ANEXSIA 5/325MG TABLET (HYDROcodone/ACETAMINOPHEN) As Ordered ONE; +TRIAMCINOLONE ACETONIDE SUSP 40MG/ML 1ML VIAL As Ordered ONE; +diazePAM 5MG TABLET As Ordered ONE
== END ==
LOC: M PAIN 08:30
PROVIDERS: ATTEND Anesthesiology
DX: G57.90 Unspecified mononeuropathy of unspecified lower limb (principal); Z87.891 Personal history of nicotine dependence; Z91.040 Latex allergy status; Z79.899 Other long term (current) drug therapy
CPT/HCPCS: 64425; J0665; J3301

== ENCOUNTER → 2023-09-15 | Outpatient (CLI) | payer OTHER ==
[~2023-09-15] MED LIST changes: -ISOVUE-M 300 61% 15ML VIAL As Ordered ONE; -LIDOCAINE 1% SDV 30ML VIAL As Ordered ONE; -NORCO, ANEXSIA 5/325MG TABLET (HYDROcodone/ACETAMINOPHEN) As Ordered ONE; -TRIAMCINOLONE ACETONIDE SUSP 40MG/ML 1ML VIAL As Ordered ONE; -diazePAM 5MG TABLET As Ordered ONE
[2023-09-15 14:09] LABS: BASO % 0.6 % (0.0-1.0); EOS # 0.1 10^3/uL (0.0-0.5); EOS % 0.7 % (0.0-3.0); HEMATOCRIT 40.9 % (36.0-47.0); HEMOGLOBIN 13.2 g/dl (12.0-15.5); LYMPH # 2.3 10^3/uL (1.5-5.0); LYMPH % 33.4 % (24.0-44.0); MEAN CORPUSCULAR HEMOGLOBIN 30.6 pg (27.0-33.0); MEAN CORPUSCULAR HGB CONC 32.3 g/dl (32.0-36.5); MEAN CORPUSCULAR VOLUME 94.7 fl (80.0-96.0); MONO # 0.8 10^3/uL (0.0-0.8); MONO % 12.3 % (2.0-8.0); NEUTROPHILS # 3.6 10^3/uL (1.5-8.5); NEUTROPHILS % 52.4 % (36.0-66.0); PLATELET COUNT, AUTOMATED 221 10^3/uL (150-450); RED BLOOD COUNT 4.32 10^6/uL (4.00-5.40); WHITE BLOOD COUNT 6.8 10^3/uL (4.0-10.0)
[2023-09-15 14:27] LABS: ALBUMIN 4.3 G/DL (3.2-5.2); ALKALINE PHOSPHATASE 48 U/L (46-116); ALT/SGPT 12 U/L (7.0-40); AST/SGOT 12 U/L (<34); BILIRUBIN,TOTAL 0.5 MG/DL (0.3-1.2); BLOOD UREA NITROGEN 10 MG/DL (9-23); CARBON DIOXIDE LEVEL 28 MMOL/L (20-31); CHLORIDE LEVEL 106 MMOL/L (98-107); CREATININE FOR GFR 0.68 MG/DL (0.55-1.30); GLOMERULAR FILTRATION RATE > 60.0 (>60); GLUCOSE, FASTING 83 MG/DL (60-100); POTASSIUM SERUM 4.4 MMOL/L (3.5-5.1); SODIUM LEVEL 143 MMOL/L (136-145); TOTAL PROTEIN 7.1 G/DL (5.7-8.2)
[2023-09-15 14:29] LABS: THYROID STIMULATING HORMONE 2.459 uIU/ML (0.55-4.78); TOTAL 25(OH) VITAMIN D 30.3 NG/ML (20.0-100.0)
[2023-09-15 14:30] LABS: FREE T4 1.06 NG/DL (0.89-1.76)
== END ==
LOC: M PLALAB 11:54
PROVIDERS: ATTEND Nurse Practitioner Family
DX: F41.9 Anxiety disorder, unspecified (principal); R53.83 Other fatigue; E55.9 Vitamin D deficiency, unspecified

== ENCOUNTER → 2023-11-04 | Outpatient (REF) | payer OTHER ==
[2023-11-04 13:02] LABS: APPEARANCE, URINE CLEAR (CLEAR); BACTERIA, URINE AUTO NEGATIVE (NEGATIVE); BILIRUBIN, URINE AUTO NEGATIVE (NEGATIVE); BLOOD, URINE BLOOD 1+ (NEGATIVE); COLOR, URINE STRAW (YELLOW); GLUCOSE, URINE (UA) AUTO NEGATIVE (NEGATIVE); KETONE, URINE AUTO NEGATIVE (NEGATIVE); LEUKOCYTE ESTERASE, URINE AUTO NEGATIVE (NEGATIVE); MUCUS, URINE SMALL (NEGATIVE); NITRITE, URINE AUTO NEGATIVE (NEGATIVE); PROTEIN, URINE AUTO NEGATIVE (NEGATIVE); RBC, URINE AUTO 0 /HPF (0-3); SPECIFIC GRAVITY URINE AUTO 1.003 (1.002-1.035); SQUAMOUS EPITHELIAL CELL UR AU 1 /HPF (0-6); UROBILINOGEN, URINE AUTO 0.2 mg/dL (0.0-2.0); WBC, URINE AUTO 0 /HPF (0-3)
[2023-11-04 15:03] LABS: CHLAMYDIA DNA AMPLIFICATION NEGATIVE (NEGATIVE); GC DNA AMPLIFICATION NEGATIVE (NEGATIVE)
== END ==
LOC: M LAB REF 12:22
PROVIDERS: ATTEND Physician Assistant
DX: N39.0 Urinary tract infection, site not specified (principal)